=== PATIENT | female | born 1940 | race American Indian/Alaskan Native ===

== ENCOUNTER 2017-02-17 07:18 | Day surgery (SDC) | payer MEDICARE ==
[~2017-02-17 07:18] MED LIST: ANCEF/STERILE WATER 2 GM/20 ML 2 GM/20 ML SYRINGE IV NR; DILAUDID ONE; DIPRIVAN 10 MG/ML IV ONE; HEPARIN 10,000 UNITS/10 ML ONE; MARCAINE 0.5% 30 ML INFILTRATI ONE; NACL 0.9% 1000 ML 1,000 ML IV SCH; NACL 0.9% 250ML 250 ML ONE; NACL 0.9% 500 ML 0 ML ONE; PEPCID PO NR; SODIUM BICARBONATE ONE; XYLOCAINE 1%/ EPI 1:100,000 INFILTRATI ONE; XYLOCAINE MPF 2% ONE; ZOFRAN ONE
--- NOTE | 2017-02-17 07:30 | Anesthesia Consultation ---
Anesthesia Consult and Med Hx Date of service: 02/17/17 - Airway Anesthetic Teeth Evaluation: Dentures ROM Head & Neck: Adequate Mental/Hyoid Distance: Adequate Mallampati Class: Class III Intubation Access Assessment: Probably Good - Pulmonary Exam CTA: Yes - Cardiac Exam Cardiac Exam: RRR - Pre-Operative Health Status ASA Pre-Surgery Classification: ASA4 Proposed Anesthetic Plan: General - Pulmonary Hx Smoking: Yes (CIGARETTES 1 PPD X 20 YRS, QUIT IN 1995) Hx Sleep Apnea: No - Cardiovascular System Hx Hypertension: Yes - Endocrine Hx End Stage Renal Disease: Yes Hx Insulin Dependent Diabetes: Yes - Hematic Hx Anemia: Yes - Other Systems Hx Cancer: No - Additional Comments Anesthesia Medical History Comments: CHF. High cholesterol. Patient's daughter has power of transactional attorney.
--- NOTE | 2017-02-17 07:31 | Anesthesia Day of Surgery ---
Anesthesia Day of Surgery - Day of Surgery Patient Examined: Yes Patient H&P Reviewed: Yes Patient is NPO: Yes Beta Blockers: Yes
[2017-02-17] MEDS ORDERED: NACL BACTERIOSTATIC INFILTRATI ONE (07:39)
[2017-02-17] MEDS ORDERED: DILAUDID IV PRN (08:04)
[2017-02-17] MEDS ORDERED: ZOFRAN IV PRN (09:00)
[2017-02-17] MEDS ORDERED: SODIUM BICARBONATE IV ONE (09:13)
[2017-02-17] MEDS ORDERED: RIFADIN ONE (09:13)
[2017-02-17] MEDS ORDERED: NACL P/F VIAL (10 ML) 10 ML ONE (09:15)
[2017-02-17] MEDS ORDERED: DECADRON ONE (09:17)
[2017-02-17] MEDS ORDERED: RIFADIN 600 MG in NACL 0.9% 50 ML IR ONE (09:22)
[2017-02-17] MEDS ORDERED: HEPARIN 10,000 UNITS/10 ML 1,000 UNIT in NACL 0.9% 250ML 250 ML IR ONE (09:22)
[2017-02-17] MEDS ORDERED: HEPARIN 10,000 UNITS/10 ML ONE (09:23)
[2017-02-17] MEDS ORDERED: MARCAINE 0.5% INFILTRATI ONE ×2 (09:41)
[2017-02-17] MEDS ORDERED: NACL 0.9% IR ONE (09:41)
[2017-02-17] MEDS ORDERED: GELFOAM TP ONE ×2 (09:45→09:48)
[2017-02-17] MEDS ORDERED: THROMBIN (BOVINE) TP ONE (09:46)
[2017-02-17] MEDS ORDERED: THROMBIN SPRAYKIT (BOVINE) TP ONE (09:48)
--- NOTE | 2017-02-17 10:47 | Short Stay Summary ---
Short Stay Documentation - History H&P: obtained from office - Allergies and Medications Current Medications: Allergies metformin Allergy (Verified 02/08/17 15:03) Unknown Home Medications Medication Instructions Recorded Confirmed Last Taken Type ALBUTEROL NEB's [Proventil] 2.5 mg IH Q6H PRN 02/08/17 02/08/17 02/16/17 History Acetaminophen [Acetaminophen ER 650 mg PO Q6HR PRN 02/08/17 02/08/17 02/16/17 History TAB] Carvedilol [Coreg] 6.25 mg PO BID 02/08/17 02/08/17 02/17/17 05:05 History Enoxaparin [Lovenox] 30 mg SQ QDAY 02/08/17 02/08/17 02/16/17 History Ergocalciferol (Vitamin D2) 5,000 unit PO DAILY 02/08/17 02/08/17 02/16/17 History [Vitamin D2] Esomeprazole Magnesium [NexIUM] 40 mg PO QDAY 02/08/17 02/08/17 02/17/17 05:05 History Fe Fumarate/FA/Mv, Min Comb#15 1 tab PO QDAY 02/08/17 02/08/17 02/16/17 History [Hemocyte Plus] Gabapentin [Neurontin] 100 mg PO Q8HR 02/08/17 02/08/17 02/16/17 History Insulin Aspart Prot/Aspart(Nf) 0 units SQ TIDAC 02/08/17 02/08/17 02/16/17 History [Novolog Mix 70/30] Insulin Glargine [Lantus] 15 unit SUB-Q QHS 02/08/17 02/08/17 02/16/17 History Melatonin [Melatin] 3 mg PO QHS 02/08/17 02/08/17 02/16/17 History Mineral Oil/Hydrophil Petrolat 50 gm TP QPM 02/08/17 02/08/17 02/16/17 History [Aquaphor Healing Ointment] Polyethylene Glycol 3350 [Miralax 17 gm PO Q6H PRN 02/08/17 02/08/17 02/16/17 History 3350] Pravastatin Sodium [Pravastatin] 40 mg PO QDAY 02/08/17 02/08/17 02/17/17 05:05 History Sucralfate [Carafate] 1 gm PO Q6HR 02/08/17 02/08/17 02/16/17 History Ascorbic Acid [Vitamin C] 500 mg PO DAILY 02/17/17 02/17/17 02/17/17 History Aspirin [Adult Low Dose Aspirin EC] 81 mg PO DAILY 02/17/17 02/17/17 02/16/17 History HYDROcodone/APAP 5-325 [[place] 1 each PO Q4HR PRN #60 tablet 02/17/17 Unknown Rx 5/325] Vit B Comp&C/Folic Acid/Vit D3 1 each PO DAILY 02/17/17 02/17/17 02/16/17 History [Dialyvite 800 Plus D Wafer] Active Medications Famotidine (Pepcid) 20 mg PO PREOP NR Stop: 02/17/17 23:59 Last Admin: 02/17/17 08:07 Dose: 20 mg Hydromorphone HCl (Dilaudid) 0.25 mg IV Q10MIN PRN PRN Reason: Pain, Moderate (4-6) Stop: 02/17/17 16:00 Cefazolin Sodium (Ancef/Sterile Water 2 Gm/20 Ml) 2 gm in 20 mls @ 80 mls/hr IV PREOP NR PRN Reason: Protocol Stop: 02/17/17 23:59 Sodium Chloride (Nacl 0.9% 1000 Ml) 1,000 mls @ 42 mls/hr IV DIRECT RONNIE Last Admin: 02/17/17 07:45 Dose: 42 mls/hr - Brief post op/procedure progress note Date of procedure: 02/17/17 Pre-op diagnosis: ESRD Post-op diagnosis: same Procedure: LUE AVG WITH 6MM BOVINE BRACHIAL ARTERY TO AXILLARY VEIN Anesthesia: other (LMA, LOCAL) Findings: GOOD THRILL, 2+ RADIAL AT END OF CASE Surgeon: ELY GARAY Estimated blood loss: minimal Pathology: none Condition: stable - Hospital course Hospital course: BENIGN - Disposition Condition at discharge: Good Disposition: DISCHARGED TO HOME OR SELFCARE - Discharge Diagnoses (1) ESRD (end stage renal disease) on dialysis Status: Chronic Comment: HERE FOR PERMANENT ACCESS Short Stay Discharge Plan Activity: advance as tolerated Diet: regular Wound: keep clean and dry Follow up with: ELY GARAY MD [Staff Physician] - 14 Days Prescriptions: HYDROcodone/APAP 5-325 [[place] 5/325] 1 each PO Q4HR PRN #60 tablet PRN Reason: Pain
--- NOTE | 2017-02-17 10:49 | Operative Report ---
Operative Report Operative Report: Date of procedure: 02/17/2017 Pre-operative diagnosis: End-stage renal failure Post-operative diagnosis: Same Procedure name(s): Left upper extremity brachial artery to axillary vein bridge graft using 6 mm bovine graft Surgeon: Chuy Jay MD Director Of Surgery: None Anesthesia: Local MAC EBL: Less than 50 mL Operative indication: Patient is a 76-year-old woman with end-stage renal failure and need for long-term hemodialysis access. Findings: Excellent thrill in the arteriovenous graft at the end of the procedure. And 2+ left radial pulse. Procedure: The patient was placed on the table in the supine position. The arm was prepped with ChloraPrep solution and draped in the usual sterile fashion. I examined the basilic vein in the left upper arm with ultrasound. I did not see a usable vein in the upper portion of the arm. Under local anesthesia, an incision was made just above the elbow. Dissection was carried out to identify the brachial artery. The brachial artery was surrounded with Vesseloops proximally and distally. The brachial artery was approximately 5 mm in diameter. A second incision was made in the axilla and dissection was carried out to identify the axillary vein. This vein was also at least 7 mm in diameter. Vessel loops were placed proximally and distally. I should note that the wounds were infiltrated with half percent Marcaine and epinephrine prior to incision. The bovine graft was prepped according to the IFU. A tunnel was created in the upper arm between the 2 incisions using a Sophia-Wick tunneler. The graft was anastomosed to the axillary vein in an end to side fashion using running 6-0 Prolene. The arterial anastomosis was completed in an end-to-side fashion. The arteriotomy was approximate 5 mm in length. A Alisa catheter was used to break the spasm in the brachial artery proximally and distally to the anastomosis. The anastomosis is completed and flow was started into the arteriovenous graft with the development of an immediate and excellent thrill along the body of the graft. The left radial pulse remained palpable. Meticulous hemostasis was obtained. Closure was done with 3-0 Vicryl on the subcutaneous tissues tissue and 4-0 PDS on the subcuticular tissue. Sterile dressings were applied. The patient tolerated the procedure well. There was an easily palpable left radial pulse at the end of the procedure. There was a good thrill in the graft at the end of the procedure. Sponge, needle, and instrument counts were reported as correct. The patient was taken from the operating room to the recovery room in stable condition.
[2017-02-17] MEDS ORDERED: PROVENTIL IH ONE (10:53)
[2017-02-17] MEDS ORDERED: PROVENTIL IH STA (10:59)
--- NOTE | 2017-02-17 12:30 | Post Anesthesia Evaluation ---
- Post Anesthesia Evaluation Patient Participated: Yes Airway Patent: Yes Stable Respiratory Function: Yes Nausea/Vomiting: No Temp > 96.8F: Yes Pain Manageable: Yes Adequeate Hydration: Yes Anesthesia Complications: No Block Receding Appropriately: Not Applicable Patient on Ventilator: No
[2017-02-17 12:42] VITALS: BP 146/57
== END 2017-02-17 12:10 | disposition home or self-care (01) ==
LOC: OR 07:18
PROVIDERS: ATTEND Surgery Vascular Surgery
DX: E11.22 Type 2 diabetes mellitus with diabetic chronic kidney disease (principal); I13.2 Hypertensive heart and chronic kidney disease with heart failure and with stage 5 chronic kidney disease, or end stage renal disease; N18.6 End stage renal disease; I50.9 Heart failure, unspecified; I15.9 Secondary hypertension, unspecified; E78.5 Hyperlipidemia, unspecified; D64.9 Anemia, unspecified; Z99.2 Dependence on renal dialysis; Z98.890 Other specified postprocedural states; Z90.49 Acquired absence of other specified parts of digestive tract; Z87.891 Personal history of nicotine dependence; Z79.84 Long term (current) use of oral hypoglycemic drugs; Z79.899 Other long term (current) drug therapy; Z83.3 Family history of diabetes mellitus; Z82.49 Family history of ischemic heart disease and other diseases of the circulatory system
CPT/HCPCS: 36415; 36830; 82962; 84132; A4649; C1757; C1768; J0690; J1100; J1170; J1644; J2405; J2704; J3490; J7030; J7050; J7040

== ENCOUNTER 2017-04-28 17:32 | Inpatient (IN) | payer MEDICARE ==
[2017-04-28] MEDS ORDERED: NACL 0.9% 1000 ML 1,000 ML IV ONE (18:23)
[2017-04-28] MEDS ORDERED: NACL 0.9% 500 ML 500 ML IV ONE ×2 (18:36→22:07)
[2017-04-28 18:46] LABS: Basophils % (Auto) 0.9 % (0.0-1.8); Eosinophils % (Auto) 3.8 % (0.0-4.3); Hematocrit 29.2 % (30.3-42.9); Hemoglobin 9.5 gm/dl (10.1-14.3); Mean Corpuscular HGB Conc 33 % (30-34); Mean Corpuscular Hemoglobin 30 pg (28-32); Mean Corpuscular Volume 93 fl (79-97); Platelet Count 138 K/mm3 (140-440); Red Blood Count 3.15 M/mm3 (3.65-5.03); Red Cell Distribution Width 18.3 % (13.2-15.2); White Blood Count 5.7 K/mm3 (4.5-11.0)
[2017-04-28 18:57] LABS: INR 1.31 (0.87-1.13)
[2017-04-28 18:58] LABS: Partial Thromboplastin Time 36.5 Sec. (24.2-36.6)
[2017-04-28 19:06] LABS: Albumin 2.3 g/dL (3.9-5); Albumin/Globulin Ratio 0.8 %; Bilirubin,Total 0.9 mg/dL (0.1-1.2); Calcium 8.1 mg/dL (8.4-10.2); Chloride 96.2 mmol/L (98-107); Potassium 3.5 mmol/L (3.6-5.0); Total Protein 5.2 g/dL (6.3-8.2)
--- NOTE | 2017-04-28 19:10 | Emergency Department Report ---
HPI - General Chief Complaint: GI Bleed Time Seen by Provider: 04/28/17 18:22 - HPI HPI: Patient sent to ED from group home with several large bright red bowel movement, low blood pressure, symptoms started after dialysis. The patient's medical issues include dialysis, end-stage renal disease, high blood pressure, diabetes, hyperlipidemia. Since the bleeding started the patient have been mildly confused. ED Past Medical Hx - Past Medical History Hx Hypertension: Yes Hx Congestive Heart Failure: Yes Hx Diabetes: Yes Hx Renal Disease: Yes (dialysis) Hx HIV: No - Surgical History Hx Appendectomy: Yes Additional Surgical History: av graft left arm and vas cath right chest - Family History Family history: hypertension - Social History Smoking Status: Never Smoker Substance Use Type: None - Medications Home Medications: Home Medications Medication Instructions Recorded Confirmed Last Taken Type ALBUTEROL NEB's [Proventil] 2.5 mg IH Q6H PRN 02/08/17 04/28/17 02/16/17 History Acetaminophen [Acetaminophen ER 650 mg PO Q6HR PRN 02/08/17 04/28/17 02/16/17 History TAB] Carvedilol [Coreg] 6.25 mg PO BID 02/08/17 04/28/17 02/17/17 05:05 History Enoxaparin [Lovenox] 30 mg SQ QDAY 02/08/17 04/28/17 02/16/17 History Ergocalciferol (Vitamin D2) 5,000 unit PO DAILY 02/08/17 04/28/17 02/16/17 History [Vitamin D2] Esomeprazole Magnesium [NexIUM] 40 mg PO QDAY 02/08/17 04/28/17 02/17/17 05:05 History Gabapentin [Neurontin] 100 mg PO Q8HR 02/08/17 04/28/17 02/16/17 History Insulin Aspart Prot/Aspart(Nf) 0 units SQ TIDAC 02/08/17 04/28/17 02/16/17 History [Novolog Mix 70/30] Insulin Glargine [Lantus] 15 unit SUB-Q QHS 02/08/17 04/28/17 02/16/17 History Melatonin [Melatin] 3 mg PO QHS 02/08/17 04/28/17 02/16/17 History Polyethylene Glycol 3350 [Miralax 17 gm PO Q6H PRN 02/08/17 04/28/17 02/16/17 History 3350] Pravastatin Sodium [Pravastatin] 40 mg PO QDAY 02/08/17 04/28/17 02/17/17 05:05 History Ascorbic Acid [Vitamin C] 500 mg PO DAILY 02/17/17 04/28/17 02/17/17 History Aspirin [Adult Low Dose Aspirin EC] 81 mg PO DAILY 02/17/17 04/28/17 02/16/17 History HYDROcodone/APAP 5-325 [[place] 1 each PO Q4HR PRN #60 tablet 02/17/17 04/28/17 Unknown Rx 5/325] Cyproheptadine HCl 4 mg PO TID 04/28/17 04/28/17 Unknown History Menthol/Zinc Oxide [Calmoseptine 71 gm TP Q4H 04/28/17 04/28/17 Unknown History Ointment] Nystatin Cream [Mycostatin Cream] 1 applic TP BID 04/28/17 04/28/17 Unknown History Polyethylene Glycol 3350 [Miralax 17 gm PO Q6H PRN 04/28/17 04/28/17 Unknown History 3350] Sertraline [Zoloft] 25 mg PO QDAY 04/28/17 04/28/17 Unknown History Vit B Cplx #11/FA/C/Biot/Zn Ox 1 each PO QDAY 04/28/17 04/28/17 Unknown History [Dialyvite with Zinc Tablet] ED Review of Systems ROS: Stated complaint: GI BLEED Other details as noted in HPI Comment: All other systems reviewed and negative Gastrointestinal: hematochezia Physical Exam - Physical Exam Vital Signs: Vital Signs 04/28/17 04/28/17 18:20 18:50 Temperature 98 F Pulse Rate 101 H 86 Respiratory 20 18 Rate Blood Pressure 99/49 Blood Pressure 93/45 [Right] O2 Sat by Pulse 95 Oximetry Physical Exam: Gen. alert and oriented 3 in no distress Head atraumatic normocephalic Eyes PERR LA EOMI Chest regular rate and rhythm normal S1-S2 lungs clear bilaterally Abdomen soft nondistended, bright red blood per rectum. Back no point tenderness paravertebral tenderness Neuro no focal deficit. Psych normal mood. ED Course Vital Signs 04/28/17 04/28/17 18:20 18:50 Temperature 98 F Pulse Rate 101 H 86 Respiratory 20 18 Rate Blood Pressure 99/49 Blood Pressure 93/45 [Right] O2 Sat by Pulse 95 Oximetry - Reevaluation(s) Reevaluation #1: 04/28/17 23:03 BB it dropped to 70s over 30s, rectal bleeding increased, decision made to give patient O- blood 2 unit. Also fresh frozen plasma times one unit. Patient premedicated with Solu-Medrol 125 mg, Benadryl 25 mg IV prior to transfusion. GI consulted spoke with Dr. Jadiel Canchola's recommended getting the scan and get the patient prepped for colonoscopy in the morning. Also I spoke with Dr. Howell into the ED and evaluated patient and recommended against surgical intervention at this time due to unstable blood pressure. I attempted to put a central line in the right groin area, Reevaluation #2: 04/29/17 00:[address] a left femoral vein triple-lumen catheter, start patient 3 times, entered the femoral vein, guidewire would not thread, likely to scar tissue. area cleaned, dressing placed, patient in stable condition. ED Medical Decision Making - Lab Data Result diagrams: 04/28/17 22:47 04/28/17 18:20 Critical Care Time: Yes Critical care time in (mins) excluding proc time.: 45 Critical care attestation.: If time is entered above; I have spent that time in minutes in the direct care of this critically ill patient, excluding procedure time. Critical Care Time: 45 mns ED Disposition Clinical Impression: Lower GI bleed Disposition: OP ADMIT IP TO THIS HOSP Is pt being admited?: Yes Does the pt Need Aspirin: No Condition: Critical
--- NOTE | 2017-04-28 19:13 | Admit Criteria Form ---
Admission Criteria Documentation: GASTROINTESTINAL BLEEDING, LOWER Clinical Indications for Admission to Inpatient Care ( Place 'X' for any and all applicable criteria): Admission is indicated for ANY ONE of the following(1)(2)(3)(4)(5): [ ]I. Active gross bleeding per rectum [X ]II. Inpatient admission required rather than observation care (Also use Gastrointestinal Bleeding, Lower: Observation Care as appropriate) because of ANY ONE of the following: [ ]a) Hemodynamic instability that is severe or persistent [ ]b) Anemia requiring inpatient admission as indicated by ALL of the following: [ ]1) Presence of significant clinical finding indicated by ANY ONE of the following: [ ]A. Tachycardia for age [ ]B. Orthostatic vital sign changes [ ]C. Cognitive impairment [ ]D. Heart failure [ ]E. Chest pain [ ]F. Exertional dyspnea [ ]G. Other findings suggesting inadequate perfusion (eg, peripheral or myocardial ischemia, end organ dysfunction) [ ]2) Initial (eg, emergency department, observation care) treatment with transfusion or volume replacement is judged inappropriate (due to severity of the finding) or has been ineffective [ ]c) Severe pain requiring acute inpatient management [ ]d) Absent bowel sounds with complete ileus [ ]e) Signs of intestinal obstruction or peritonitis [A] [ ]f) High-risk low platelet count [ ]g) Severe electrolyte abnormalities requiring inpatient care [ ]h) Acute renal failure [ ]i) High fever or infection requiring inpatient admission as indicated by ANY ONE of the following(8)(9): [ ]1) Appropriate outpatient or observation care antimicrobial treatment unavailable, not effective, or not feasible Documented bacteremia [ ]2) Documented bacteremia [ ]3) Temperature greater than 104.9 degrees F ( 40.5 degrees C) (oral) [ ]4) Temperature greater than 103.1 degrees F ( 39.5 degrees C) (oral) or less than 96.8 degrees F (36 degrees C) (rectal) that does not respond to all emergency treatment measures [ ]j) IV fluid to replace significant ongoing losses ( greater than 3 L/m2 per day) [ ]k) Immediate inpatient surgery needed [ ]l) Parenteral nutrition regimen that must be implemented on inpatient basis [X ]m) Other condition, treatment or monitoring requiring inpatient admission [ ]III. Unstable comorbid illness (renal, hepatic, pulmonary, hematologic, neurologic, or cardiac) [ ]IV. Failure to control bleeding after colonoscopy [ ]V. Coagulopathy [ ]. Suspected or known ischemic colitis(6) [ ]VII. Previous aortic graft placement or known aortic aneurysm Extended stay beyond goal length of stay may be needed for(3)(4)(28): [ ]a) Emergency surgery [ ]b) Coagulation abnormalities(26) [ ]c) Recurrent or persistent bleeding, continued vital sign instability(27)( 28) [ ]d) Active comorbidities (eg, renal insufficiency, heart failure, pre- existing liver disease) The original [employer] content created by [employer] has been revised. The portions of the content which have been revised are identified through the use of italic text or in bold, and [facility] has neither reviewed nor approved the modified material. All other unmodified content is copyright [facility]. Please see references footnoted in the original [employer] edition 2016 Admission Criteria Met: Yes
[2017-04-28 19:55] LABS: Hemoglobin 8.4 gm/dl (10.1-14.3)
[2017-04-28] MEDS ORDERED: BENADRYL IV ONE (20:38)
[2017-04-28] MEDS: LEVOPHED DRIP 4 MG/NS 250 ML 4 MG/250 ML BAG IV SCH ×2 (20:45→22:12)
--- NOTE | 2017-04-28 22:18 | History and Physical Report ---
History of Present Illness Date of examination: 04/28/17 History of present illness: 76-year-old woman with a history of diabetes, end-stage renal disease, CHF, stable emergency room because of blood per rectum and clots noted in her diaper. Daughter at bedside state that the patient had an episode of bleeding per rectum a month ago. Patient has been hypotensive and was started on the Levophed drip. Status post steroids and Benadryl in the emergency room secondary to antibodies to blood Review of systems Constitutional: no fever, no chills, no weight loss Ears, eyes, nose, mouth and throat: no nasal congestion, no nasal discharge, no sinus pressure, no vision change, no red eye. Neck: No neck pain or rigidity. Cardiovascular: chest pain, no orthopnea, no palpitations, no leg swelling Respiratory: No shortness of breath, no cough, no congestion, no wheezing Gastrointestinal: no abdominal pain, nausea, no vomiting Genitourinary : no dysuria, frequency , no hematuria Musculoskeletal: no joint swelling or muscle ache Integumentary: no rash, no pruritis Neurological: no parathesias, no numbness, no focal weakness Endocrine: no cold or heat intolerance, no polyuria or polydipsia Hematologic/Lymphatic: no easy bruising, no easy bleeding, no gland swelling Allergic/Immunologic: no urticaria, no angioedema. PAST MEDICAL HISTORY:diabetes, end-stage renal disease, CHF PAST SURGICAL HISTORY: Appendectomy, AV fistula, elbow surgery, carpal tunnel release, hysterectomy, , knee replacement FAMILY HISTORY: Hypertension, diabetes SOCIAL HISTORY: Denies alcohol, tobacco, drug Medications and Allergies Allergies Allergy/AdvReac Type Severity Reaction Status Date / Time metformin Allergy Unknown Verified 02/08/17 15:03 Home Medications Medication Instructions Recorded Confirmed Last Taken Type ALBUTEROL NEB's [Proventil] 2.5 mg IH Q6H PRN 02/08/17 04/28/17 02/16/17 History Acetaminophen [Acetaminophen ER 650 mg PO Q6HR PRN 02/08/17 04/28/17 02/16/17 History TAB] Carvedilol [Coreg] 6.25 mg PO BID 02/08/17 04/28/17 02/17/17 05:05 History Enoxaparin [Lovenox] 30 mg SQ QDAY 02/08/17 04/28/1717 History Ergocalciferol (Vitamin D2) 5,000 unit PO DAILY 02/08/17 04/28/17 02/16/17 History [Vitamin D2] Esomeprazole Magnesium [NexIUM] 40 mg PO QDAY 02/08/17 04/28/17 02/17/17 05:05 History Gabapentin [Neurontin] 100 mg PO Q8HR 02/08/17 04/28/17 02/16/17 History Insulin Aspart Prot/Aspart(Nf) 0 units SQ TIDAC 02/08/17 04/28/17 02/16/17 History [Novolog Mix 70/30] Insulin Glargine [Lantus] 15 unit SUB-Q QHS 02/08/17 04/28/17 02/16/17 History Melatonin [Melatin] 3 mg PO QHS 02/08/17 04/28/17 02/16/17 History Polyethylene Glycol 3350 [Miralax 17 gm PO Q6H PRN 02/08/17 04/28/17 02/16/17 History 3350] Pravastatin Sodium [Pravastatin] 40 mg PO QDAY 02/08/17 04/28/17 02/17/17 05:05 History Ascorbic Acid [Vitamin C] 500 mg PO DAILY 02/17/17 04/28/17 02/17/17 History Aspirin [Adult Low Dose Aspirin EC] 81 mg PO DAILY 02/17/17 04/28/17 02/16/17 History HYDROcodone/APAP 5-325 [[place] 1 each PO Q4HR PRN #60 tablet 02/17/17 04/28/17 Unknown Rx 5/325] Cyproheptadine HCl 4 mg PO TID 04/28/17 04/28/17 Unknown History Menthol/Zinc Oxide [Calmoseptine 71 gm TP Q4H 04/28/17 04/28/17 Unknown History Ointment] Nystatin Cream [Mycostatin Cream] 1 applic TP BID 04/28/17 04/28/17 Unknown History Polyethylene Glycol 3350 [Miralax 17 gm PO Q6H PRN 04/28/17 04/28/17 Unknown History 3350] Sertraline [Zoloft] 25 mg PO QDAY 04/28/17 04/28/17 Unknown History Vit B Cplx #11/FA/C/Biot/Zn Ox 1 each PO QDAY 04/28/17 04/28/17 Unknown History [Dialyvite with Zinc Tablet] Active Meds: Active Medications Norepinephrine (Levophed Drip 4 Mg/Ns 250 Ml) 4 mg in 250 mls @ 7.5 mls/hr IV TITR RONNIE; 2 MCG/MIN PRN Reason: Protocol Last Admin: 04/28/17 22:12 Dose: 2.5 mcg/min, 9.375 mls/hr Ondansetron HCl (Zofran) 4 mg IV Q4H PRN PRN Reason: N/V unrelieved by Reglan Exam - Physical Exam Narrative exam: Gen. appearance: Patient lying in bed, no apparent distress HEENT: Normocephalic, atraumatic, pupils equally round and reactive to light, extraocular movement intact, and no sclericterus,. No JVD or thyromegaly or nodule,neck supple, no carotid bruit ,mucous membranes moist, no exudate or erythema Heart: S1, S2, regular rate and rhythm Lungs: Clear to auscultation bilaterally, breathing comfortable Abdomen: Positive bowel sounds, nontender, nondistended, no organomegaly Extremity: No edema, cyanosis, clubbing Skin: No rash, nodules, warm, dry Neuro: Oriented 3, cranial nerves II-12 intact, speech is fluent, motor and sensory intact - Constitutional Vitals: Temp Pulse Resp BP Pulse Ox 97.3 F L 95 H 15 106/41 95 04/28/17 21:21 04/28/17 21:21 04/28/17 21:21 04/28/17 21:21 04/28/17 21:21 Results - Labs CBC & Chem 7: 04/29/17 19:32 04/29/17 03:27 Labs: Abnormal lab results 04/28/17 04/28/17 04/28/17 Range/Units 18:20 18:20 18:20 RBC 3.15 L (3.65-5.03) M/mm3 Hgb 9.5 L (10.1-14.3) gm/dl Hct 29.2 L (30.3-42.9) % RDW 18.3 H (13.2-15.2) % Plt Count 138 L (140-440) K/mm3 PT (12.2-14.9) Sec. INR (0.87-1.13) Potassium 3.5 L (3.6-5.0) mmol/L Chloride 96.2 L (98-107) mmol/L Carbon Dioxide 31 H (22-30) mmol/L Creatinine 2.0 H (0.7-1.2) mg/dL Glucose 207 H (65-100) mg/dL Lactic Acid (0.7-2.0) mmol/L Calcium 8.1 L (8.4-10.2) mg/dL Total Protein 5.2 L (6.3-8.2) g/dL Albumin 2.3 L (3.9-5) g/dL Crossmatch See Detail 04/28/17 04/28/17 04/28/17 Range/Units 18:20 19:41 20:12 RBC (3.65-5.03) M/mm3 Hgb 8.4 L (10.1-14.3) gm/dl Hct 26.0 L (30.3-42.9) % RDW (13.2-15.2) % Plt Count (140-440) K/mm3 PT 17.0 H (12.2-14.9) Sec. INR 1.31 H (0.87-1.13) Potassium (3.6-5.0) mmol/L Chloride (98-107) mmol/L Carbon Dioxide (22-30) mmol/L Creatinine (0.7-1.2) mg/dL Glucose (65-100) mg/dL Lactic Acid 4.00 H* (0.7-2.0) mmol/L Calcium (8.4-10.2) mg/dL Total Protein (6.3-8.2) g/dL Albumin (3.9-5) g/dL Crossmatch - Imaging and Cardiology EKG: image reviewed Chest x-ray: report reviewed Abdominal x-ray: report reviewed Assessment and Plan Bleeding scan is pending Assessment Lower GI bleed, rule out diverticular versus other source Hypotension secondary to acute blood loss Posthemorrhagic anemia End-stage renal disease needing dialysis Diabetes type 2 CHF, stable Plan Admit to medicine Transfuse packed red blood cells, continue Levophed drip Check serial hemoglobin, consult GI, critical care, surgery, renal Check fingersticks and initiate insulin sliding scale Check blood culture, urinalysis, give 1 dose of Zosyn DVT prophylaxis with SCD
--- NOTE | 2017-04-28 23:16 | XRay Report ---
FINAL REPORT EXAM: XR CHEST 1V AP HISTORY: cp TECHNIQUE: AP portable view of the chest. PRIORS: None. FINDINGS: There is a right-sided Vas-Cath in place with the tip in the superior vena cava. The cardiomediastinal silhouette appears normal. There is a right basilar opacity consistent with pleural effusion. The left lung is clear. The bones and soft tissues are unremarkable. IMPRESSION: Right pleural effusion
--- NOTE | 2017-04-28 23:20 | XRay Report ---
FINAL REPORT EXAM: XR ABDOMEN 1V AP HISTORY: blood in stools TECHNIQUE: Supine AP view of the abdomen. PRIORS: None. FINDINGS: The stomach is moderately air distended. The cecum is mildly gas distended. The proximal left colon is mildly gas distended. Otherwise, the bowel gas pattern appears normal. The bones are unremarkable. IMPRESSION: No evidence of bowel obstruction. Nonspecific mild gas distension of the cecum and proximal left colon.
[2017-04-28] MEDS ORDERED: FLUSH HEPARIN IV ONE (23:24)
[2017-04-28 23:32] LABS: Hematocrit 35.7 % (30.3-42.9); Hemoglobin 11.6 gm/dl (10.1-14.3)
--- NOTE | 2017-04-29 01:42 | Nuclear Medicine Report ---
FINAL REPORT PROCEDURE: NM GI BLEEDING SCAN TECHNIQUE: Arterial flow and static planar gamma camera images of the abdomen and pelvis were obtained after the IV administration of 20 mCi Tc-99m tagged red blood cells. Injection site: RIGHT antecubital fossa. CPT 73801 HISTORY: bleeding COMPARISON: No prior studies are available for comparison. FINDINGS: Small and Large bowel activity: Normal. Organs and soft tissues: Normal. IMPRESSION: Normal evaluation with no evidence of active GI bleeding during the study.
[2017-04-29] MEDS: ZOFRAN IV PRN ×2 (03:32→22:15)
[2017-04-29 03:45] LABS: Hematocrit 35.2 % (30.3-42.9); Hemoglobin 11.4 gm/dl (10.1-14.3); Mean Corpuscular HGB Conc 32 % (30-34); Mean Corpuscular Hemoglobin 29 pg (28-32); Mean Corpuscular Volume 90 fl (79-97); Platelet Count 147 K/mm3 (140-440); Red Blood Count 3.91 M/mm3 (3.65-5.03); Red Cell Distribution Width 16.7 % (13.2-15.2); White Blood Count 14.3 K/mm3 (4.5-11.0)
[2017-04-29 04:05] LABS: Calcium 8.2 mg/dL (8.4-10.2); Chloride 97.7 mmol/L (98-107)
[2017-04-29 04:09] LABS: Potassium 4.8 mmol/L (3.6-5.0)
[2017-04-29 05:24] LABS: Anisocytosis 1+; Basophils % (Manual) 0 % (0.0-1.8); Blastocytes % (Manual) 0 %; Diff Status Complete; Eosinophils % (Manual) 0 % (0.0-4.3)
--- NOTE | 2017-04-29 05:31 | Consultation ---
HISTORY OF PRESENT ILLNESS: This patient is a 76-year-old black female (known case of renal failure). She is on hemodialysis. She is a known case of congestive heart failure as well and diabetes. She came to the hospital from the retirement. Apparently, she had some bleeding from her rectum this afternoon. The patient had hemodialysis today as per her family. Her normal blood pressure is 140 to 150 and when she came in, her blood pressure was between 80 and 90, and Dr. Rodriguez had seen her today in the ER and the patient was started on the blood. She had 2 units of packed cells so far. Her blood pressure went up to range of 102 to 105. He noted that her platelets are okay, it is 132. The hemoglobin is 8. Her blood pressure is on the lower side, however. I was asked to evaluate her because of the bleed that she had. I could see the blood from her rectum, mainly dark red blood mixed with stool. There is no vaginal bleeding. The patient gives history of hysterectomy in the past. ALLERGIES: Allergic reactions were denied. PHYSICAL EXAMINATION: GENERAL: Showed a thin, slim, elderly lady. She is sociable. She is able to respond. HEAD AND NECK: Negative. BREASTS: Symmetric and these were atrophic. CHEST: Essentially clear to me. HEART: Sounds normal. ABDOMEN: Protuberant, soft, benign. Some tenderness in the mid lower abdomen, more to the left side. EXTREMITIES: Minimal edema. IMPRESSION: 1. Gastrointestinal bleeding ? Lower. 2. Diabetes mellitus by history. 3. On hemodialysis. 4. On Lovenox. 5. S/P saravanan I had a lengthy talk with the daughter with the family. She is a cyber defense incident responder. It seems that she knows what was going on. I believe this needs to be addressed by a engineer specialist to see her, fitting supervisor to see her, a law firm partner to see her and of course me. We are going to pursue that further. She is going to the Intensive Care Unit to keep an eye on her and we need to be slow with her IV fluids and giving her blood. She would need platelets, calcium, maybe potassium, vitamin K and platelets. We are going to leave that for the scalping machine operator and the fitting supervisor as well as the hospitalist. JOB# [id number] AZIZA/MECHELLE COOK
[2017-04-29] MEDS ORDERED: ZOSYN/NS 2.25 GM/50ML 2.25 GM/50 ML BAG IV ONE (05:56)
--- NOTE | 2017-04-29 09:26 | Consultation ---
History of Present Illness - Reason for Consult Consult date: 04/29/17 end stage renal disease - History of Present Illness patient with h/o ESRD on HD every TTS, last treatment was yesterday, she was sent from [facility]F for blood in stool, in the ED she was anemic with low BP and she transferred to ICU. when seen she was awake and alert but weak, daughter at the bedside. renal consult was requested for ESRD and HD management Past History Past Medical History: ESRD, heart failure Medications and Allergies Allergies Allergy/AdvReac Type Severity Reaction Status Date / Time metformin Allergy Unknown Verified 02/08/17 15:03 Home Medications Medication Instructions Recorded Confirmed Last Taken Type ALBUTEROL NEB's [Proventil] 2.5 mg IH Q6H PRN 02/08/17 04/28/17 02/16/17 History Acetaminophen [Acetaminophen ER 650 mg PO Q6HR PRN 02/08/17 04/28/17 02/16/17 History TAB] Carvedilol [Coreg] 6.25 mg PO BID 02/08/17 04/28/17 02/17/17 05:05 History Enoxaparin [Lovenox] 30 mg SQ QDAY 02/08/17 04/28/17 02/16/17 History Ergocalciferol (Vitamin D2) 5,000 unit PO DAILY 02/08/17 04/28/17 02/16/17 History [Vitamin D2] Esomeprazole Magnesium [NexIUM] 40 mg PO QDAY 02/08/17 04/28/17 02/17/17 05:05 History Gabapentin [Neurontin] 100 mg PO Q8HR 02/08/17 04/28/17 02/16/17 History Insulin Aspart Prot/Aspart(Nf) 0 units SQ TIDAC 02/08/17 04/28/17 02/16/17 History [Novolog Mix 70/30] Insulin Glargine [Lantus] 15 unit SUB-Q QHS 02/08/17 04/28/17 02/16/17 History Melatonin [Melatin] 3 mg PO QHS 02/08/17 04/28/17 02/16/17 History Polyethylene Glycol 3350 [Miralax 17 gm PO Q6H PRN 02/08/17 04/28/17 02/16/17 History 3350] Pravastatin Sodium [Pravastatin] 40 mg PO QDAY 02/08/17 04/28/17 02/17/17 05:05 History Ascorbic Acid [Vitamin C] 500 mg PO DAILY 02/17/17 04/28/17 02/17/17 History Aspirin [Adult Low Dose Aspirin EC] 81 mg PO DAILY 02/17/17 04/28/17 02/16/17 History HYDROcodone/APAP 5-325 [[place] 1 each PO Q4HR PRN #60 tablet 02/17/17 04/28/17 Unknown Rx 5/325] Cyproheptadine HCl 4 mg PO TID 04/28/17 04/28/17 Unknown History Menthol/Zinc Oxide [Calmoseptine 71 gm TP Q4H 04/28/17 04/28/17 Unknown History Ointment] Nystatin Cream [Mycostatin Cream] 1 applic TP BID 04/28/17 04/28/17 Unknown History Polyethylene Glycol 3350 [Miralax 17 gm PO Q6H PRN 04/28/17 04/28/17 Unknown History 3350] Sertraline [Zoloft] 25 mg PO QDAY 04/28/17 04/28/17 Unknown History Vit B Cplx #11/FA/C/Biot/Zn Ox 1 each PO QDAY 04/28/17 04/28/17 Unknown History [Dialyvite with Zinc Tablet] Active Meds: Active Medications Norepinephrine (Levophed Drip 4 Mg/Ns 250 Ml) 4 mg in 250 mls @ 7.5 mls/hr IV TITR RONNIE; 2 MCG/MIN PRN Reason: Protocol Last Titration: 04/29/17 00:39 Dose: 6 mcg/min, 22.5 mls/hr Ondansetron HCl (Zofran) 4 mg IV Q4H PRN PRN Reason: N/V unrelieved by Mark Last Admin: 04/29/17 03:32 Dose: 4 mg Review of Systems All systems: negative (weakness, blood in stool) Exam - Vital Signs Vital signs: Vital Signs Temp Pulse Resp BP 98 F 101 H 20 99/49 04/28/17 18:20 04/28/17 18:20 04/28/17 18:20 04/28/17 18:20 - General Appearance General appearance: well-developed, well-nourished EENT: ATNC, PERRL, mucous membranes moist Neck: Present: neck supple Respiratory: Clear to Ascultation Heart: regular, tachycardia, S1S2 Gastrointestinal: Present: normoactive bowel sounds. Absent: tenderness, distended Integumentary: no rash, warm and dry Neurologic: no focal deficit, no asterixis, alert and oriented x3 Musculoskeletal: Present: other (no edema in BLE, L AVF with + thrill and bruit) Psychiatric: mood/affect appropriate, cooperative Results - Lab Results 04/29/17 03:27 04/29/17 03:27 Most recent lab results Calcium 8.2 mg/dL (8.4-10.2) L 04/29/17 03:27 Assessment and Plan - Patient Problems (1) Lower GI bleed Current Visit: Yes Status: Acute Plan to address problem: negative CT and and nuclear study s/p PRBC transfusion surgery on board (2) Hypotension Current Visit: Yes Status: Acute Qualifiers: Hypotension type: H Trimester: T Plan to address problem: due to volume depletion titrating down levo can bolus with NS as needed (3) ESRD (end stage renal disease) on dialysis Current Visit: No Status: Chronic Plan to address problem: current access L AVF with thrill and bruit no indication for HD today will assess dialysis needs daily renally dose meds strict I&O daily weight renal diet (4) Anemia in chronic renal disease Current Visit: Yes Status: Acute Qualifiers: Chronic kidney disease stage: C Plan to address problem: s/p PRBC transfusion Epogen with HD
--- NOTE | 2017-04-29 09:39 | Gastroenterology Consultation ---
<ANNITA VAZQUEZ - Last Filed: 04/29/17 09:53> History of Present Illness - Reason for Consult Consult date: 04/29/17 GI bleed Requesting physician: BRENNAN DARNELL - History of Present Illness Patient is a 76 y/o female detention resident, who was brought to the ER yesterday for rectal bleeding with clots in her diaper. She was noted to also be hypotensive and placed on a levophed gtt. HGB was noted to be 8.4 and she received 2 units of PRBCs. She also underwent a GI bleeding scan that revealed no evidence of active GI bleeding. She was receiving daily ASA and lovenox at the detention. PMH significant for DM, ESRD on HD, and CHF. This morning, pt was resting in bed, no acute distress. Alert and oriented to person only. History was given by her daughter that was at bedside. The daughter reports the rectal bleeding began yesterday with bright red blood. No hematemesis or melena noted. Reports occasional nausea and gradual wt loss (unknown amount) due to decrease in appetite and poor PO intake. No hx of PUD, liver disease, or Fhx of colon CA. No previous EGD or colonoscopy per her knowledge. Our group was consulted on the pt in 12/10 at [facility] for odynophagia, she was placed on a daily PPI, but no EGD performed. Pt denies CP, SOB, dizziness, vomiting, abd pain, diarrhea, or constipation. Per nursing pt has not had any active signs of bleeding since being in ICU. Past History Past Medical History: diabetes, ESRD (on HD), heart failure Past Surgical History: appendectomy, , hysterectomy, total knee replacement, Other (elbow, AV fistula) Social history: full code, other (detention resident). denies: smoking, alcohol abuse Family history: diabetes, hypertension Medications and Allergies Allergies Allergy/AdvReac Type Severity Reaction Status Date / Time metformin Allergy Unknown Verified 02/08/17 15:03 Home Medications Medication Instructions Recorded Confirmed Last Taken Type ALBUTEROL NEB's [Proventil] 2.5 mg IH Q6H PRN 02/08/17 04/28/17 02/16/17 History Acetaminophen [Acetaminophen ER 650 mg PO Q6HR PRN 02/08/17 04/28/17 02/16/17 History TAB] Carvedilol [Coreg] 6.25 mg PO BID 02/08/17 04/28/17 02/17/17 05:05 History Enoxaparin [Lovenox] 30 mg SQ QDAY 02/08/17 04/28/17 02/16/17 History Ergocalciferol (Vitamin D2) 5,000 unit PO DAILY 02/08/17 04/28/17 02/16/17 History [Vitamin D2] Esomeprazole Magnesium [NexIUM] 40 mg PO QDAY 02/08/17 04/28/17 02/17/17 05:05 History Gabapentin [Neurontin] 100 mg PO Q8HR 02/08/17 04/28/17 02/16/17 History Insulin Aspart Prot/Aspart(Nf) 0 units SQ TIDAC 02/08/17 04/28/17 02/16/17 History [Novolog Mix 70/30] Insulin Glargine [Lantus] 15 unit SUB-Q QHS 02/08/17 04/28/17 02/16/17 History Melatonin [Melatin] 3 mg PO QHS 02/08/17 04/28/17 02/16/17 History Polyethylene Glycol 3350 [Miralax 17 gm PO Q6H PRN 02/08/17 04/28/17 02/16/17 History 3350] Pravastatin Sodium [Pravastatin] 40 mg PO QDAY 02/08/17 04/28/17 02/17/17 05:05 History Ascorbic Acid [Vitamin C] 500 mg PO DAILY 02/17/17 04/28/17 02/17/17 History Aspirin [Adult Low Dose Aspirin EC] 81 mg PO DAILY 02/17/17 04/28/17 02/16/17 History HYDROcodone/APAP 5-325 [[place] 1 each PO Q4HR PRN #60 tablet 02/17/17 04/28/17 Unknown Rx 5/325] Cyproheptadine HCl 4 mg PO TID 04/28/17 04/28/17 Unknown History Menthol/Zinc Oxide [Calmoseptine 71 gm TP Q4H 04/28/17 04/28/17 Unknown History Ointment] Nystatin Cream [Mycostatin Cream] 1 applic TP BID 04/28/17 04/28/17 Unknown History Polyethylene Glycol 3350 [Miralax 17 gm PO Q6H PRN 04/28/17 04/28/17 Unknown History 3350] Sertraline [Zoloft] 25 mg PO QDAY 04/28/17 04/28/17 Unknown History Vit B Cplx #11/FA/C/Biot/Zn Ox 1 each PO QDAY 04/28/17 04/28/17 Unknown History [Dialyvite with Zinc Tablet] Active Meds: Active Medications Norepinephrine (Levophed Drip 4 Mg/Ns 250 Ml) 4 mg in 250 mls @ 7.5 mls/hr IV TITR RONNIE; 2 MCG/MIN PRN Reason: Protocol Last Titration: 04/29/17 00:39 Dose: 6 mcg/min, 22.5 mls/hr Ondansetron HCl (Zofran) 4 mg IV Q4H PRN PRN Reason: N/V unrelieved by Mark Last Admin: 04/29/17 03:32 Dose: 4 mg Review of Systems - Review of Systems All systems: negative Constitutional: weight loss, poor appetite Gastrointestinal: nausea, BRBPR, hematochezia, no vomiting, no hematemesis, no melena Exam - Constitutional Vital Signs: Temp Pulse Resp BP Pulse Ox 98.4 F 83 13 143/64 100 04/29/17 07:52 04/29/17 07:41 04/29/17 07:41 04/29/17 07:41 04/29/17 08:13 General appearance: no acute distress - EENT Eyes: PERRL, EOM intact ENT: hearing intact - Respiratory Respiratory: bilateral: CTA (anterior) - Cardiovascular Rhythm: regular Heart Sounds: Present: S1 & S2 Extremities: No edema - Gastrointestinal General gastrointestinal: Present: soft, non-tender, non-distended, normal bowel sounds - Integumentary Integumentary: Present: warm, dry - Neurologic Neurological: oriented to person, disoriented - Psychiatric Psychiatric: cooperative - Labs CBC & Chem 7: 04/29/17 03:27 04/29/17 03:27 Lab Results: Laboratory Results - last 24 hr 04/28/17 04/29/17 04/29/17 22:47 03:27 03:27 WBC 14.3 H RBC 3.91 Hgb 11.6 D 11.4 Hct 35.7 D 35.2 MCV 90 MCH 29 MCHC 32 RDW 16.7 H Plt Count 147 Add Manual Diff Complete Total Counted 100 Seg Neutrophils % Deputy Prosecuting Attorney Seg Neuts % (Manual) 99.0 H Band Neutrophils % 0 Lymphocytes % (Manual) 0 L Reactive Lymphs % (Man) 0 Monocytes % (Manual) 1.0 Eosinophils % (Manual) 0 Basophils % (Manual) 0 Metamyelocytes % 0 Myelocytes % 0 Promyelocytes % 0 Blast Cells % 0 Nucleated RBC % Not Reportable Seg Neutrophils # Man 14.2 H Band Neutrophils # 0.0 Lymphocytes # (Manual) 0.0 L Abs React Lymphs (Man) 0.0 Monocytes # (Manual) 0.1 Eosinophils # (Manual) 0.0 Basophils # (Manual) 0.0 Metamyelocytes # 0.0 Myelocytes # 0.0 Promyelocytes # 0.0 Blast Cells # 0.0 WBC Morphology Not Reportable Hypersegmented Neuts Not Reportable Hyposegmented Neuts Not Reportable Hypogranular Neuts Not Reportable Smudge Cells Not Reportable Toxic Granulation Not Reportable Toxic Vacuolation Not Reportable Dohle Bodies Not Reportable Pelger-Huet Anomaly Not Reportable [place] Rods Not Reportable Platelet Estimate Appears normal Clumped Platelets Not Reportable Plt Clumps, EDTA Not Reportable Large Platelets Not Reportable Giant Platelets Not Reportable Platelet Satelliting Not Reportable Plt Morphology Comment Not Reportable RBC Morphology Not Reportable Dimorphic RBCs Not Reportable Polychromasia Not Reportable Hypochromasia Not Reportable Poikilocytosis Not Reportable Anisocytosis 1+ Microcytosis Not Reportable Macrocytosis Not Reportable Spherocytes Not Reportable Pappenheimer Bodies Not Reportable Sickle Cells Not Reportable Target Cells Not Reportable Tear Drop Cells Not Reportable Ovalocytes Not Reportable Helmet Cells Not Reportable [place] Bodies Not Reportable [place] Rings Not Reportable Ruddy Cells Not Reportable Bite Cells Not Reportable Crenated Cell Not Reportable Elliptocytes Not Reportable Acanthocytes (Spur) Not Reportable Rouleaux Not Reportable Hemoglobin C Crystals Not Reportable Schistocytes Not Reportable Malaria parasites Not Reportable Jerry Bodies Not Reportable Hem Pathologist Commnt No Sodium 142 Potassium 4.8 D Chloride 97.7 L Carbon Dioxide 27 Anion Gap 22 BUN 20 H Creatinine 2.5 H Estimated GFR 23 BUN/Creatinine Ratio 8.00 Glucose 245 H POC Glucose Calcium 8.2 L 08/04/17 04:04 WBC RBC Hgb Hct MCV MCH MCHC RDW Plt Count Add Manual Diff Total Counted Seg Neutrophils % Seg Neuts % (Manual) Band Neutrophils % Lymphocytes % (Manual) Reactive Lymphs % (Man) Monocytes % (Manual) Eosinophils % (Manual) Basophils % (Manual) Metamyelocytes % Myelocytes % Promyelocytes % Blast Cells % Nucleated RBC % Seg Neutrophils # Man Band Neutrophils # Lymphocytes # (Manual) Abs React Lymphs (Man) Monocytes # (Manual) Eosinophils # (Manual) Basophils # (Manual) Metamyelocytes # Myelocytes # Promyelocytes # Blast Cells # WBC Morphology Hypersegmented Neuts Hyposegmented Neuts Hypogranular Neuts Smudge Cells Toxic Granulation Toxic Vacuolation Dohle Bodies Pelger-Huet Anomaly [place] Rods Platelet Estimate Clumped Platelets Plt Clumps, EDTA Large Platelets Giant Platelets Platelet Satelliting Plt Morphology Comment RBC Morphology Dimorphic RBCs Polychromasia Hypochromasia Poikilocytosis Anisocytosis Microcytosis Macrocytosis Spherocytes Pappenheimer Bodies Sickle Cells Target Cells Tear Drop Cells Ovalocytes Helmet Cells [place] Bodies [place] Rings Ruddy Cells Bite Cells Crenated Cell Elliptocytes Acanthocytes (Spur) Rouleaux Hemoglobin C Crystals Schistocytes Malaria parasites Jerry Bodies Hem Pathologist Commnt Sodium Potassium Chloride Carbon Dioxide Anion Gap BUN Creatinine Estimated GFR BUN/Creatinine Ratio Glucose POC Glucose 276 H Calcium Assessment and Plan 1.GI bleed 2.BRBPR 3.hematochezia -HGB 11.4 today- s/p transfusion of 2 units PRBCs -continue to monitor H&H and transfuse as needed -hold blood thinning medications -no active signs of bleeding overnight or this am per nursing -bleeding scan-negative- with no evidence of active GI bleeding -pt currently hemodynamically stable but still on levaphed gtt -continue supportive care -clear liquid diet today as tolerated, then NPO after MN -will schedule for a colonoscopy in am -if overt bleeding develops, would consider ordering a CT angiogram -will follow <GERSON BRADSHAW - Last Filed: 04/29/17 10:10> Medications and Allergies Active Meds: Active Medications Norepinephrine (Levophed Drip 4 Mg/Ns 250 Ml) 4 mg in 250 mls @ 7.5 mls/hr IV TITR RONNIE; 2 MCG/MIN PRN Reason: Protocol Last Titration: 04/29/17 00:39 Dose: 6 mcg/min, 22.5 mls/hr Ondansetron HCl (Zofran) 4 mg IV Q4H PRN PRN Reason: N/V unrelieved by Mark Last Admin: 04/29/17 03:32 Dose: 4 mg Polyethylene Glycol/Electrolytes (Golytely) 4,000 ml PO ONCE ONE Stop: 04/29/17 09:55 Exam - Constitutional Vital Signs: Temp Pulse Resp BP Pulse Ox 98.4 F 83 13 143/64 100 04/29/17 07:52 04/29/17 07:41 04/29/17 07:41 04/29/17 07:41 04/29/17 08:13 - Labs CBC & Chem 7: 04/29/17 03:27 04/29/17 03:27 Lab Results: Laboratory Results - last 24 hr 04/28/17 04/29/17 04/29/17 22:47 03:27 03:27 WBC 14.3 H RBC 3.91 Hgb 11.6 D 11.4 Hct 35.7 D 35.2 MCV 90 MCH 29 MCHC 32 RDW 16.7 H Plt Count 147 Add Manual Diff Complete Total Counted 100 Seg Neutrophils % Deputy Prosecuting Attorney Seg Neuts % (Manual) 99.0 H Band Neutrophils % 0 Lymphocytes % (Manual) 0 L Reactive Lymphs % (Man) 0 Monocytes % (Manual) 1.0 Eosinophils % (Manual) 0 Basophils % (Manual) 0 Metamyelocytes % 0 Myelocytes % 0 Promyelocytes % 0 Blast Cells % 0 Nucleated RBC % Not Reportable Seg Neutrophils # Man 14.2 H Band Neutrophils # 0.0 Lymphocytes # (Manual) 0.0 L Abs React Lymphs (Man) 0.0 Monocytes # (Manual) 0.1 Eosinophils # (Manual) 0.0 Basophils # (Manual) 0.0 Metamyelocytes # 0.0 Myelocytes # 0.0 Promyelocytes # 0.0 Blast Cells # 0.0 WBC Morphology Not Reportable Hypersegmented Neuts Not Reportable Hyposegmented Neuts Not Reportable Hypogranular Neuts Not Reportable Smudge Cells Not Reportable Toxic Granulation Not Reportable Toxic Vacuolation Not Reportable Dohle Bodies Not Reportable Pelger-Huet Anomaly Not Reportable [place] Rods Not Reportable Platelet Estimate Appears normal Clumped Platelets Not Reportable Plt Clumps, EDTA Not Reportable Large Platelets Not Reportable Giant Platelets Not Reportable Platelet Satelliting Not Reportable Plt Morphology Comment Not Reportable RBC Morphology Not Reportable Dimorphic RBCs Not Reportable Polychromasia Not Reportable Hypochromasia Not Reportable Poikilocytosis Not Reportable Anisocytosis 1+ Microcytosis Not Reportable Macrocytosis Not Reportable Spherocytes Not Reportable Pappenheimer Bodies Not Reportable Sickle Cells Not Reportable Target Cells Not Reportable Tear Drop Cells Not Reportable Ovalocytes Not Reportable Helmet Cells Not Reportable [place] Bodies Not Reportable [place] Rings Not Reportable [place] Cells Not Reportable Bite Cells Not Reportable Crenated Cell Not Reportable Elliptocytes Not Reportable Acanthocytes (Spur) Not Reportable Rouleaux Not Reportable Hemoglobin C Crystals Not Reportable Schistocytes Not Reportable Malaria parasites Not Reportable Jerry Bodies Not Reportable Hem Pathologist Commnt No Sodium 142 Potassium 4.8 D Chloride 97.7 L Carbon Dioxide 27 Anion Gap 22 BUN 20 H Creatinine 2.5 H Estimated GFR 23 BUN/Creatinine Ratio 8.00 Glucose 245 H POC Glucose Calcium 8.2 L 04/29/17 04:04 WBC RBC Hgb Hct MCV MCH MCHC RDW Plt Count Add Manual Diff Total Counted Seg Neutrophils % Seg Neuts % (Manual) Band Neutrophils % Lymphocytes % (Manual) Reactive Lymphs % (Man) Monocytes % (Manual) Eosinophils % (Manual) Basophils % (Manual) Metamyelocytes % Myelocytes % Promyelocytes % Blast Cells % Nucleated RBC % Seg Neutrophils # Man Band Neutrophils # Lymphocytes # (Manual) Abs React Lymphs (Man) Monocytes # (Manual) Eosinophils # (Manual) Basophils # (Manual) Metamyelocytes # Myelocytes # Promyelocytes # Blast Cells # WBC Morphology Hypersegmented Neuts Hyposegmented Neuts Hypogranular Neuts Smudge Cells Toxic Granulation Toxic Vacuolation Dohle Bodies Pelger-Huet Anomaly [place] Rods Platelet Estimate Clumped Platelets Plt Clumps, EDTA Large Platelets Giant Platelets Platelet Satelliting Plt Morphology Comment RBC Morphology Dimorphic RBCs Polychromasia Hypochromasia Poikilocytosis Anisocytosis Microcytosis Macrocytosis Spherocytes Pappenheimer Bodies Sickle Cells Target Cells Tear Drop Cells Ovalocytes Helmet Cells [place] Bodies [place] Rings Jackson Cells Bite Cells Crenated Cell Elliptocytes Acanthocytes (Spur) Rouleaux Hemoglobin C Crystals Schistocytes Malaria parasites Jerry Bodies Hem Pathologist Commnt Sodium Potassium Chloride Carbon Dioxide Anion Gap BUN Creatinine Estimated GFR BUN/Creatinine Ratio Glucose POC Glucose 276 H Calcium Assessment and Plan Patient seen and examined. Agree with note by Annita Vazquez. Patient presents with new onset hematochezia x 1 day (multiple episodes of maroon blood per rectum with clots). Patient hypotensive in ED, currently on levophed, but being weaned off. No further bleeding since early this morning in the ED. Bleeding scan negative for active bleeding. Labs improved with blood transfusions. Pt's daughter at bedside who helps provide some history for pt ( not diagnosed with dementia, but has some memory loss per pt's daughter). She denies abd pain or prior bleeding. -cont monitoring in ICU -monitor H/H, transfuse prn -prep this evening for colonoscopy +/- EGD tomorrow
[2017-04-29] MEDS ORDERED: GOLYTELY PO ONE (09:54)
[2017-04-29 11:00] LABS: Basophils % (Auto) 0.1 % (0.0-1.8); Hematocrit 33.9 % (30.3-42.9); Hemoglobin 11.1 gm/dl (10.1-14.3); Mean Corpuscular HGB Conc 33 % (30-34); Mean Corpuscular Hemoglobin 29 pg (28-32); Mean Corpuscular Volume 89 fl (79-97); Platelet Count 149 K/mm3 (140-440); Red Blood Count 3.79 M/mm3 (3.65-5.03); Red Cell Distribution Width 16.3 % (13.2-15.2); White Blood Count 14.9 K/mm3 (4.5-11.0)
--- NOTE | 2017-04-29 12:06 | Consultation ---
History of Present Illness - Reason for Consult Consult date: 04/29/17 GI bleed, shock, possible hemorrhagic Requesting physician: BRENNAN DARNELL - History of Present Illness 76 y/o female admitted to ICU with GI bleed and witnessed bright red blood from bottom. Hypotensive as well in ED so placed on pressors, central line placed and transitioned to unit. She has not required transfusion and is currently on levo at 2 mcgs. Past History Past Medical History: diabetes, ESRD (on HD), heart failure Past Surgical History: appendectomy, , hysterectomy, total knee replacement, Other (elbow, AV fistula) Social history: full code, other ([facility] resident). denies: smoking, alcohol abuse Family history: diabetes, hypertension Medications and Allergies Allergies Allergy/AdvReac Type Severity Reaction Status Date / Time metformin Allergy Unknown Verified 02/08/17 15:03 Home Medications Medication Instructions Recorded Confirmed Last Taken Type ALBUTEROL NEB's [Proventil] 2.5 mg IH Q6H PRN 02/08/17 04/28/17 02/16/17 History Acetaminophen [Acetaminophen ER 650 mg PO Q6HR PRN 02/08/17 04/28/17 02/16/17 History TAB] Carvedilol [Coreg] 6.25 mg PO BID 02/08/17 04/28/17 02/17/17 05:05 History Enoxaparin [Lovenox] 30 mg SQ QDAY 02/08/17 04/28/17 02/16/17 History Ergocalciferol (Vitamin D2) 5,000 unit PO DAILY 02/08/17 04/28/17 02/16/17 History [Vitamin D2] Esomeprazole Magnesium [NexIUM] 40 mg PO QDAY 02/08/17 04/28/17 02/17/17 05:05 History Gabapentin [Neurontin] 100 mg PO Q8HR 02/08/17 04/28/17 02/16/17 History Insulin Aspart Prot/Aspart(Nf) 0 units SQ TIDAC 02/08/17 04/28/17 02/16/17 History [Novolog Mix 70/30] Insulin Glargine [Lantus] 15 unit SUB-Q QHS 02/08/17 04/28/17 02/16/17 History Melatonin [Melatin] 3 mg PO QHS 0504/28/17 02/16/17 History Polyethylene Glycol 3350 [Miralax 17 gm PO Q6H PRN 02/08/17 04/28/17 02/16/17 History 3350] Pravastatin Sodium [Pravastatin] 40 mg PO QDAY 02/08/17 04/28/17 02/17/17 05:05 History Ascorbic Acid [Vitamin C] 500 mg PO DAILY 02/17/17 04/28/17 02/17/17 History Aspirin [Adult Low Dose Aspirin EC] 81 mg PO DAILY 02/17/17 04/28/17 02/16/17 History HYDROcodone/APAP 5-325 [[place] 1 each PO Q4HR PRN #60 tablet 02/17/17 04/28/17 Unknown Rx 5/325] Cyproheptadine HCl 4 mg PO TID 04/28/17 04/28/17 Unknown History Menthol/Zinc Oxide [Calmoseptine 71 gm TP Q4H 04/28/17 04/28/17 Unknown History Ointment] Nystatin Cream [Mycostatin Cream] 1 applic TP BID 04/28/17 04/28/17 Unknown History Polyethylene Glycol 3350 [Miralax 17 gm PO Q6H PRN 04/28/17 04/28/17 Unknown History 3350] Sertraline [Zoloft] 25 mg PO QDAY 04/28/17 04/28/17 Unknown History Vit B Cplx #11/FA/C/Biot/Zn Ox 1 each PO QDAY 04/28/17 04/28/17 Unknown History [Dialyvite with Zinc Tablet] Active Meds: Active Medications Norepinephrine (Levophed Drip 4 Mg/Ns 250 Ml) 4 mg in 250 mls @ 7.5 mls/hr IV TITR RONNIE; 2 MCG/MIN PRN Reason: Protocol Last Titration: 04/29/17 00:39 Dose: 6 mcg/min, 22.5 mls/hr Ondansetron HCl (Zofran) 4 mg IV Q4H PRN PRN Reason: N/V unrelieved by Mark Last Admin: 04/29/17 03:32 Dose: 4 mg Exam - Constitutional Vitals: Temp Pulse Resp BP Pulse Ox 98.4 F 86 11 L 131/51 100 04/29/17 11:00 04/29/17 10:51 04/29/17 11:00 04/29/17 11:00 04/29/17 11:00 Results - Labs CBC & Chem 7: 04/29/17 10:48 04/29/17 03:27 Labs: Abnormal lab results 04/29/17 04/29/17 04/29/17 Range/Units 03:27 03:27 04:04 WBC 14.3 H (4.5-11.0) K/mm3 RDW 16.7 H (13.2-15.2) % Lymph % (Auto) (13.4-35.0) % Seg Neutrophils % (40.0-70.0) % Seg Neuts % (Manual) 99.0 H (40.0-70.0) % Lymphocytes % (Manual) 0 L (13.4-35.0) % Seg Neutrophils # (1.8-7.7) K/mm3 Seg Neutrophils # Man 14.2 H (1.8-7.7) K/mm3 Lymphocytes # (Manual) 0.0 L (1.2-5.4) K/mm3 Chloride 97.7 L (98-107) mmol/L BUN 20 H (7-17) mg/dL Creatinine 2.5 H (0.7-1.2) mg/dL Glucose 245 H (65-100) mg/dL POC Glucose 276 H (70-105) Calcium 8.2 L (8.4-10.2) mg/dL 04/29/17 Range/Units 10:48 WBC 14.9 H (4.5-11.0) K/mm3 RDW 16.3 H (13.2-15.2) % Lymph % (Auto) 10.7 L (13.4-35.0) % Seg Neutrophils % 85.8 H (40.0-70.0) % Seg Neuts % (Manual) (40.0-70.0) % Lymphocytes % (Manual) (13.4-35.0) % Seg Neutrophils # 12.8 H (1.8-7.7) K/mm3 Seg Neutrophils # Man (1.8-7.7) K/mm3 Lymphocytes # (Manual) (1.2-5.4) K/mm3 Chloride (98-107) mmol/L BUN (7-17) mg/dL Creatinine (0.7-1.2) mg/dL Glucose (65-100) mg/dL POC Glucose (70-105) Calcium (8.4-10.2) mg/dL Assessment and Plan 76 y/o female with hypotension and GI bleed and chronic renal failure on HD 1. q6 hour H/H's 2. has 2 peripheral IV's and central line 3. Montior BP here in ICU 4. Thankful for GI recs 5. HD per renal 6. Overall prognosis is guarded CCT 31 min
[2017-04-29] MEDS: ANCEF/NS 1 GM/50 ML 1 GM/50 ML BAG IV SCH (13:00)
[2017-04-29 13:53] LABS: Basophils % (Auto) 0.2 % (0.0-1.8); Eosinophils % (Auto) 0.1 % (0.0-4.3); Hematocrit 32.6 % (30.3-42.9); Hemoglobin 10.7 gm/dl (10.1-14.3); Mean Corpuscular HGB Conc 33 % (30-34); Mean Corpuscular Hemoglobin 30 pg (28-32); Mean Corpuscular Volume 91 fl (79-97); Platelet Count 137 K/mm3 (140-440); Red Blood Count 3.58 M/mm3 (3.65-5.03); Red Cell Distribution Width 16.8 % (13.2-15.2); White Blood Count 10.8 K/mm3 (4.5-11.0)
--- NOTE | 2017-04-29 14:28 | Progress Note ---
Subjective Patient Reports: Positive: feels better, bowel movement Narrative: doing fine , no bleeding ., Hcrt 35 will start po liq . Objective Vital Signs - 12hr 04/29/17 04/29/17 04/29/17 03:00 05:00 07:00 Temperature Pulse Rate Pulse Rate [ 88 72 82 Right Apical] Respiratory Rate Blood Pressure O2 Sat by Pulse Oximetry 04/29/17 04/29/17 04/29/17 07:06 07:11 07:21 Temperature Pulse Rate 93 H 88 90 Pulse Rate [ Right Apical] Respiratory 14 18 12 Rate Blood Pressure 136/72 O2 Sat by Pulse Oximetry 04/29/17 04/29/17 04/29/17 07:30 07:41 07:51 Temperature Pulse Rate 86 83 84 Pulse Rate [ Right Apical] Respiratory 19 13 15 Rate Blood Pressure 143/64 143/64 147/47 O2 Sat by Pulse Oximetry 04/29/17 04/29/17 04/29/17 07:52 08:00 08:11 Temperature 98.4 F Pulse Rate 88 78 Pulse Rate [ Right Apical] Respiratory 14 15 Rate Blood Pressure 144/57 147/47 O2 Sat by Pulse 100 Oximetry 04/29/17 04/29/17 04/29/17 08:13 08:21 08:30 Temperature Pulse Rate 82 83 Pulse Rate [ Right Apical] Respiratory 13 16 Rate Blood Pressure 129/54 124/51 O2 Sat by Pulse 100 Oximetry 04/29/17 04/29/17 04/29/17 08:41 08:51 09:01 Temperature Pulse Rate 89 84 91 H Pulse Rate [ Right Apical] Respiratory 13 15 17 Rate Blood Pressure 144/57 141/69 131/46 O2 Sat by Pulse Oximetry 04/29/17 04/29/17 04/29/17 09:10 09:21 09:31 Temperature Pulse Rate 88 86 88 Pulse Rate [ Right Apical] Respiratory 16 14 19 Rate Blood Pressure 124/51 136/54 136/54 O2 Sat by Pulse Oximetry 04/29/17 04/29/17 04/29/17 09:41 09:51 10:00 Temperature Pulse Rate 82 93 H 86 Pulse Rate [ Right Apical] Respiratory 17 13 Rate Blood Pressure 136/54 121/96 O2 Sat by Pulse Oximetry 04/29/17 04/29/17 04/29/17 10:01 10:11 10:21 Temperature Pulse Rate 89 98 H 93 H Pulse Rate [ Right Apical] Respiratory 10 L 18 21 Rate Blood Pressure 121/96 121/96 115/62 O2 Sat by Pulse Oximetry 04/29/17 04/29/17 04/29/17 10:31 10:41 10:51 Temperature Pulse Rate 82 80 86 Pulse Rate [ Right Apical] Respiratory 14 23 11 L Rate Blood Pressure 125/53 125/53 131/51 O2 Sat by Pulse Oximetry 04/29/17 04/29/17 04/29/17 11:00 11:11 11:21 Temperature 98.4 F Pulse Rate 80 78 91 H Pulse Rate [ Right Apical] Respiratory 11 L 24 16 Rate Blood Pressure 119/48 119/48 117/40 O2 Sat by Pulse 100 Oximetry 04/29/17 04/29/17 04/29/17 11:31 11:41 11:51 Temperature Pulse Rate 80 79 83 Pulse Rate [ Right Apical] Respiratory 13 15 14 Rate Blood Pressure 107/39 107/39 111/40 O2 Sat by Pulse Oximetry 04/29/17 04/29/17 04/29/17 12:00 12:11 12:21 Temperature 98.3 F Pulse Rate 79 74 79 Pulse Rate [ Right Apical] Respiratory 13 22 15 Rate Blood Pressure 92/32 92/32 106/41 O2 Sat by Pulse Oximetry 04/29/17 04/29/17 04/29/17 12:30 12:41 12:51 Temperature Pulse Rate 82 82 83 Pulse Rate [ Right Apical] Respiratory 15 14 19 Rate Blood Pressure 122/73 122/73 118/53 O2 Sat by Pulse Oximetry 04/29/17 04/29/17 04/29/17 13:00 13:11 13:21 Temperature Pulse Rate 82 84 79 Pulse Rate [ Right Apical] Respiratory 17 21 15 Rate Blood Pressure 93/37 104/44 127/49 O2 Sat by Pulse Oximetry 04/29/17 04/29/17 04/29/17 13:31 13:41 13:51 Temperature Pulse Rate 83 77 78 Pulse Rate [ Right Apical] Respiratory 13 15 18 Rate Blood Pressure 127/49 127/49 127/49 O2 Sat by Pulse Oximetry 04/29/17 14:01 Temperature Pulse Rate 77 Pulse Rate [ Right Apical] Respiratory 22 Rate Blood Pressure 127/49 O2 Sat by Pulse Oximetry - Labs 04/29/17 13:36 04/29/17 03:27 Diabetes panel 04/29/17 Range/Units 03:27 Sodium 142 (137-145) mmol/L Potassium 4.8 D (3.6-5.0) mmol/L Chloride 97.7 L (98-107) mmol/L Carbon Dioxide 27 (22-30) mmol/L BUN 20 H (7-17) mg/dL Creatinine 2.5 H (0.7-1.2) mg/dL Glucose 245 H (65-100) mg/dL Calcium 8.2 L (8.4-10.2) mg/dL Calcium panel 04/29/17 Range/Units 03:27 Calcium 8.2 L (8.4-10.2) mg/dL Pituitary panel 04/29/17 Range/Units 03:27 Sodium 142 (137-145) mmol/L Potassium 4.8 D (3.6-5.0) mmol/L Chloride 97.7 L (98-107) mmol/L Carbon Dioxide 27 (22-30) mmol/L BUN 20 H (7-17) mg/dL Creatinine 2.5 H (0.7-1.2) mg/dL Glucose 245 H (65-100) mg/dL Calcium 8.2 L (8.4-10.2) mg/dL Adrenal panel 04/29/17 Range/Units 03:27 Sodium 142 (137-145) mmol/L Potassium 4.8 D (3.6-5.0) mmol/L Chloride 97.7 L (98-107) mmol/L Carbon Dioxide 27 (22-30) mmol/L BUN 20 H (7-17) mg/dL Creatinine 2.5 H (0.7-1.2) mg/dL Glucose 245 H (65-100) mg/dL Calcium 8.2 L (8.4-10.2) mg/dL
--- NOTE | 2017-04-29 15:54 | Progress Note ---
Assessment and Plan Assessment and plan: Patient is a 76-year-old woman from [facility] with a history of end- stage renal disease on hemodialysis, diabetes mellitus type 2, heart failure who presents with GI bleed. It appears she had blood clots in her diaper, she was hypotensive so started on Levophed drip and admitted to ICU. Daughter Jenna , the stated power of immigration attorney, at bedside says that her mother has some form of cognitive impairment but no official diagnosis of dementia but her memory does waxes and wanes at baseline. Patient was admitted to [facility] November 2016 for odyphagia and was started on daily PPI per GI. PCP is Dr. Nael Garcia. Hemoglobin was 8.4 and she received 2 units of blood. -Hypovolemic shock: On IV Levophed, try to wean -Acute metabolic encephalopathy: Treat the anemia -Acute on chronic GI blood loss anemia status post 2 units: Repeat CBC in a.m. -End Stage renal disease on hemodialysis: Consult nephrology -DVT prophylaxis: SCDs only due to blood loss anemia -Type 2 diabetes mellitus: As sliding-scale, Accu-Cheks, diabetic diet once cleared by consultants Full code, did discuss advanced directives with daughter Jenna at bedside due to GI blood loss anemia The high probability of a clinically significant, sudden or life threatening deterioration of the [neurologic,cardiac] system(s) required my full and direct attention, intervention and personal management. The aggregate critical care time was [35] minutes. This time is in addition to time spent performing reported procedures but includes the following: [x] Data Review and interpretation [x] Patient assessment and monitoring of vital signs [x] Documentation [x] Medication orders and management History Interval history: Patient seen and examined. Follow up on current diagnosis GI bleed. Overnight uneventful. No cp, sob, n/v or severe headaches. Imaging, old records, testing, labs, nursing notes reviewed. Daughter Jenna at bedside Hospitalist Physical - Physical exam Narrative exam: GEN: Thin and frail NAD, AWAKE, ALERT, ORIENTATED x 1 HEENT: NCAT, PERRL, EOMI, OP CLEAR NECK: SUPPLE, NO THYROMEGALY, NO JVD, NO LAD CVS: RRR, NORMAL S1S2 LUNGS/CHEST: CTA B, NORMAL CHEST EXPANSION B, GOOD AIR ENTRY B ABD: SOFT, NTND, GBS, NO REBOUND OR GUARDING EXT/SKIN: NO SIGNIFICANT EDEMA OR RASH MSK: FROM X 4 EXTREMITIES NEURO: CN 2-12 GROSSLY INTACT, NO new FOCAL DEFICITS PSY: CALM - Constitutional Vitals: Temp Pulse Resp BP Pulse Ox 98.3 F 77 22 127/49 100 04/29/17 12:00 04/29/17 14:01 04/29/17 14:01 04/29/17 14:01 04/29/17 11:00 Results - Labs CBC & Chem 7: 04/29/17 13:36 04/29/17 03:27 Labs: Laboratory Last Values WBC 10.8 K/mm3 (4.5-11.0) 04/29/17 13:36 RBC 3.58 M/mm3 (3.65-5.03) L 04/29/17 13:36 Hgb 10.7 gm/dl (10.1-14.3) 04/29/17 13:36 Hct 32.6 % (30.3-42.9) 04/29/17 13:36 MCV 91 fl (79-97) 04/29/17 13:36 MCH 30 pg (28-32) 04/29/17 13:36 MCHC 33 % (30-34) 04/29/17 13:36 RDW 16.8 % (13.2-15.2) H 04/29/17 13:36 Plt Count 137 K/mm3 (140-440) L 04/29/17 13:36 Lymph % (Auto) 11.8 % (13.4-35.0) L 04/29/17 13:36 [place] % (Auto) 4.4 % (0.0-7.3) 04/29/17 13:36 Eos % (Auto) 0.1 % (0.0-4.3) 04/29/17 13:36 Baso % (Auto) 0.2 % (0.0-1.8) 04/29/17 13:36 Lymph # 1.3 K/mm3 (1.2-5.4) 04/29/17 13:36 [place] # 0.5 K/mm3 (0.0-0.8) 04/29/17 13:36 Eos # 0.0 K/mm3 (0.0-0.4) 04/29/17 13:36 Baso # 0.0 K/mm3 (0.0-0.1) 04/29/17 13:36 Add Manual Diff Complete 04/29/17 03:27 Total Counted 100 04/29/17 03:27 Seg Neutrophils % 83.5 % (40.0-70.0) H 04/29/17 13:36 Seg Neuts % (Manual) 99.0 % (40.0-70.0) H 04/29/17 03:27 Band Neutrophils % 0 % 04/29/17 03:27 Lymphocytes % (Manual) 0 % (13.4-35.0) L 04/29/17 03:27 Reactive Lymphs % (Man) 0 % 04/29/17 03:27 Monocytes % (Manual) 1.0 % (0.0-7.3) 04/29/17 03:27 Eosinophils % (Manual) 0 % (0.0-4.3) 04/29/17 03:27 Basophils % (Manual) 0 % (0.0-1.8) 04/29/17 03:27 Metamyelocytes % 0 % 04/29/17 03:27 Myelocytes % 0 % 04/29/17 03:27 Promyelocytes % 0 % 04/29/17 03:27 Blast Cells % 0 % 04/29/17 03:27 Nucleated RBC % Not Reportable 04/29/17 03:27 Seg Neutrophils # 9.0 K/mm3 (1.8-7.7) H 04/29/17 13:36 Seg Neutrophils # Man 14.2 K/mm3 (1.8-7.7) H 04/29/17 03:27 Band Neutrophils # 0.0 K/mm3 04/29/17 03:27 Lymphocytes # (Manual) 0.0 K/mm3 (1.2-5.4) L 04/29/17 03:27 Abs React Lymphs (Man) 0.0 K/mm3 04/29/17 03:27 Monocytes # (Manual) 0.1 K/mm3 (0.0-0.8) 04/29/17 03:27 Eosinophils # (Manual) 0.0 K/mm3 (0.0-0.4) 04/29/17 03:27 Basophils # (Manual) 0.0 K/mm3 (0.0-0.1) 04/29/17 03:27 Metamyelocytes # 0.0 K/mm3 04/29/17 03:27 Myelocytes # 0.0 K/mm3 04/29/17 03:27 Promyelocytes # 0.0 K/mm3 04/29/17 03:27 Blast Cells # 0.0 K/mm3 04/29/17 03:27 WBC Morphology Not Reportable 04/29/17 03:27 Hypersegmented Neuts Not Reportable 04/29/17 03:27 Hyposegmented Neuts Not Reportable 04/29/17 03:27 Hypogranular Neuts Not Reportable 04/29/17 03:27 Smudge Cells Not Reportable 04/29/17 03:27 Toxic Granulation Not Reportable 04/29/17 03:27 Toxic Vacuolation Not Reportable 04/29/17 03:27 Dohle Bodies Not Reportable 04/29/17 03:27 Pelger-Huet Anomaly Not Reportable 04/29/17 03:27 Charlotte Rods Not Reportable 04/29/17 03:27 Platelet Estimate Appears normal 04/29/17 03:27 Clumped Platelets Not Reportable 04/29/17 03:27 Plt Clumps, EDTA Not Reportable 04/29/17 03:27 Large Platelets Not Reportable 04/29/17 03:27 Giant Platelets Not Reportable 04/29/17 03:27 Platelet Satelliting Not Reportable 04/29/17 03:27 Plt Morphology Comment Not Reportable 04/29/17 03:27 RBC Morphology Not Reportable 04/29/17 03:27 Dimorphic RBCs Not Reportable 04/29/17 03:27 Polychromasia Not Reportable 04/29/17 03:27 Hypochromasia Not Reportable 04/29/17 03:27 Poikilocytosis Not Reportable 04/29/17 03:27 Anisocytosis 1+ 04/29/17 03:27 Microcytosis Not Reportable 04/29/17 03:27 Macrocytosis Not Reportable 04/29/17 03:27 Spherocytes Not Reportable 04/29/17 03:27 Pappenheimer Bodies Not Reportable 04/29/17 03:27 Sickle Cells Not Reportable 04/29/17 03:27 Target Cells Not Reportable 04/29/17 03:27 Tear Drop Cells Not Reportable 04/29/17 03:27 Ovalocytes Not Reportable 04/29/17 03:27 Helmet Cells Not Reportable 04/29/17 03:27 V[place]-Almond Bodies Not Reportable 04/29/17 03:27 Lagro Rings Not Reportable 04/29/17 03:27 Ruddy Cells Not Reportable 04/29/17 03:27 Bite Cells Not Reportable 04/29/17 03:27 Crenated Cell Not Reportable 04/29/17 03:27 Elliptocytes Not Reportable 04/29/17 03:27 Acanthocytes (Spur) Not Reportable 04/29/17 03:27 Rouleaux Not Reportable 04/29/17 03:27 Hemoglobin C Crystals Not Reportable 04/29/17 03:27 Schistocytes Not Reportable 04/29/17 03:27 Malaria parasites Not Reportable 04/29/17 03:27 Jerry Bodies Not Reportable 04/29/17 03:27 Hem Pathologist Commnt No 04/29/17 03:27 PT 17.0 Sec. (12.2-14.9) H 04/28/17 18:20 INR 1.31 (0.87-1.13) H 04/28/17 18:20 APTT 36.5 Sec. (24.2-36.6) 04/28/17 18:20 Sodium 142 mmol/L (137-145) 04/29/17 03:27 Potassium 4.8 mmol/L (3.6-5.0) D 04/29/17 03:27 Chloride 97.7 mmol/L (98-107) L 04/29/17 03:27 Carbon Dioxide 27 mmol/L (22-30) 04/29/17 03:27 Anion Gap 22 mmol/L 04/29/17 03:27 BUN 20 mg/dL (7-17) H 04/29/17 03:27 Creatinine 2.5 mg/dL (0.7-1.2) H 04/29/17 03:27 Estimated GFR 23 ml/min 04/29/17 03:27 BUN/Creatinine Ratio 8.00 % 04/29/17 03:27 Glucose 245 mg/dL (65-100) H 04/29/17 03:27 POC Glucose 257 (70-105) H 04/29/17 11:51 Lactic Acid 4.00 mmol/L (0.7-2.0) H* 04/28/17 20:12 Calcium 8.2 mg/dL (8.4-10.2) L 04/29/17 03:27 Total Bilirubin 0.90 mg/dL (0.1-1.2) 04/28/17 18:20 AST 19 units/L (5-40) 04/28/17 18:20 ALT 11 units/L (7-56) 04/28/17 18:20 Alkaline Phosphatase 77 units/L (35-129) 04/28/17 18:20 Total Protein 5.2 g/dL (6.3-8.2) L 04/28/17 18:20 Albumin 2.3 g/dL (3.9-5) L 04/28/17 18:20 Albumin/Globulin Ratio 0.8 % 04/28/17 18:20 Blood Type B NEGATIVE 04/28/17 18:20 Antibody Screen TNR 04/28/17 18:20 JOSÉ LUIS Antibody Screen Positive 04/28/17 18:20 Antibody Identification Anti-D (Actively Aquired) 04/28/17 18:20 Crossmatch See Detail 04/28/17 18:20
[2017-04-29 19:46] LABS: Basophils % (Auto) 0.2 % (0.0-1.8); Hematocrit 29.2 % (30.3-42.9); Hemoglobin 9.8 gm/dl (10.1-14.3); Mean Corpuscular HGB Conc 34 % (30-34); Mean Corpuscular Hemoglobin 30 pg (28-32); Mean Corpuscular Volume 90 fl (79-97); Platelet Count 136 K/mm3 (140-440); Red Blood Count 3.27 M/mm3 (3.65-5.03); White Blood Count 10.2 K/mm3 (4.5-11.0)
[2017-04-30 04:55] LABS: Basophils % (Auto) 0.2 % (0.0-1.8); Eosinophils % (Auto) 0.1 % (0.0-4.3); Hematocrit 30.5 % (30.3-42.9); Hemoglobin 10.1 gm/dl (10.1-14.3); Mean Corpuscular HGB Conc 33 % (30-34); Mean Corpuscular Hemoglobin 30 pg (28-32); Mean Corpuscular Volume 90 fl (79-97); Platelet Count 137 K/mm3 (140-440); Red Blood Count 3.37 M/mm3 (3.65-5.03); Red Cell Distribution Width 17.2 % (13.2-15.2); White Blood Count 10.4 K/mm3 (4.5-11.0)
[2017-04-30] MEDS: ZOFRAN IV PRN (05:23)
[2017-04-30] MEDS ORDERED: WATER FOR IRRIG STERILE ONE (08:36)
[2017-04-30] MEDS ORDERED: WATER FOR IRRIG STERILE IR ONE (08:36)
[2017-04-30] MEDS ORDERED: GI SPOT IJ ONE (08:37)
[2017-04-30] MEDS ORDERED: NACL 0.9% 1000 ML 1,000 ML ONE (08:59)
[2017-04-30] MEDS ORDERED: XYLOCAINE MPF 2% ONE (09:00)
--- NOTE | 2017-04-30 09:37 | Anesthesia Day of Surgery ---
Anesthesia Day of Surgery - Day of Surgery Patient Examined: Yes Patient H&P Reviewed: Yes Patient is NPO: Yes
--- NOTE | 2017-04-30 09:37 | Anesthesia Consultation ---
Anesthesia Consult and Med Hx Date of service: 04/30/17 - Airway ROM Head & Neck: Adequate Mental/Hyoid Distance: Adequate Intubation Access Assessment: Probably Good - Pulmonary Exam CTA: Yes - Cardiac Exam Cardiac Exam: RRR - Pre-Operative Health Status ASA Pre-Surgery Classification: ASA4 Proposed Anesthetic Plan: MAC - Pulmonary Hx Smoking: Yes (CIGARETTES 1 PPD X 20 YRS, QUIT IN 1995) SOB: Yes (FROM CUSTODIAL HX) Hx Sleep Apnea: No - Cardiovascular System Hx Hypertension: Yes (H/O CHF) Hx Valvular Heart Disease: Yes (AORTIC STENOSIS-FROM CUSTODIAL HX) - Endocrine Hx Renal Disease: Yes (dialysis) Hx End Stage Renal Disease: Yes Hx Insulin Dependent Diabetes: Yes - Hematic Hx Anemia: Yes - Other Systems Hx Cancer: No Hx Obesity: Yes (FROM CUSTODIAL HX) - Additional Comments Anesthesia Medical History Comments: Patient remains on a levophed drip with systolic BP about 100.
[2017-04-30] MEDS ORDERED: DIPRIVAN 10 MG/ML IV ONE ×3 (10:01)
[2017-04-30] MEDS ORDERED: VERSED ONE (10:02)
--- NOTE | 2017-04-30 11:14 | Progress Note ---
Assessment and Plan 76 y/o female with hypotension and GI bleed and chronic renal failure on HD 1. Suggest changing to q12 h/h's 2. has 2 peripheral IV's and central line 3. Suggest continued ICU monitoring for the next 24 hours and transfer out on Tuesday. 4. Follow up any GI recs 5. HD per renal 6. Overall prognosis is guarded Subjective Date of service: 04/30/17 Interval history: Scoped this am. Multiple diverticuli with pockets but no active bleeding. This is per report. Nothing official in chart yet. Remains of levophed. Objective - Constitutional Vitals: Vital Signs - 12hr 04/30/17 04/30/17 04/30/17 00:00 01:00 02:00 Temperature 98.3 F Pulse Rate 84 82 89 Pulse Rate [ From Monitor] Respiratory 15 12 16 Rate Blood Pressure 106/49 106/49 123/62 O2 Sat by Pulse 100 100 100 Oximetry 04/30/17 04/30/17 04/30/17 03:00 03:20 04:00 Temperature 98.8 F Pulse Rate 88 82 92 H Pulse Rate [ From Monitor] Respiratory 16 16 Rate Blood Pressure 99/71 99/71 O2 Sat by Pulse 100 100 Oximetry 04/30/17 04/30/17 04/30/17 05:00 06:00 07:00 Temperature Pulse Rate 93 H 83 90 Pulse Rate [ From Monitor] Respiratory 20 14 13 Rate Blood Pressure 99/71 109/73 109/73 O2 Sat by Pulse 98 100 100 Oximetry 04/30/17 04/30/17 04/30/17 08:00 09:00 10:00 Temperature 97.5 F L Pulse Rate 88 96 H 110 H Pulse Rate [ 88 110 H From Monitor] Respiratory 13 12 20 Rate Blood Pressure 122/56 120/60 120/60 O2 Sat by Pulse 100 100 100 Oximetry General appearance: Present: no acute distress - Labs CBC & Chem 7: 04/30/17 04:04 04/29/17 03:27 Labs: Abnormal lab results 04/29/17 04/29/17 04/29/17 Range/Units 11:51 13:36 15:48 RBC 3.58 L (3.65-5.03) M/mm3 Hgb (10.1-14.3) gm/dl Hct (30.3-42.9) % RDW 16.8 H (13.2-15.2) % Plt Count 137 L (140-440) K/mm3 Lymph % (Auto) 11.8 L (13.4-35.0) % [place] % (Auto) (0.0-7.3) % Seg Neutrophils % 83.5 H (40.0-70.0) % Seg Neutrophils # 9.0 H (1.8-7.7) K/mm3 POC Glucose 257 H 200 H (70-105) 04/29/17 04/30/17 04/30/17 Range/Units 19:32 00:00 04:04 RBC 3.27 L 3.37 L (3.65-5.03) M/mm3 Hgb 9.8 L (10.1-14.3) gm/dl Hct 29.2 L (30.3-42.9) % RDW 17.0 H 17.2 H (13.2-15.2) % Plt Count 136 L 137 L (140-440) K/mm3 Lymph % (Auto) 11.3 L 12.3 L (13.4-35.0) % [place] % (Auto) 7.9 H (0.0-7.3) % Seg Neutrophils % 81.8 H 79.5 H (40.0-70.0) % Seg Neutrophils # 8.4 H 8.3 H (1.8-7.7) K/mm3 POC Glucose 250 H (70-105) 04/30/17 Range/Units 07:40 RBC (3.65-5.03) M/mm3 Hgb (10.1-14.3) gm/dl Hct (30.3-42.9) % RDW (13.2-15.2) % Plt Count (140-440) K/mm3 Lymph % (Auto) (13.4-35.0) % [place] % (Auto) (0.0-7.3) % Seg Neutrophils % (40.0-70.0) % Seg Neutrophils # (1.8-7.7) K/mm3 POC Glucose 171 H (70-105)
--- NOTE | 2017-04-30 11:24 | Progress Note ---
Assessment and Plan Assessment and plan: Patient is a 76-year-old woman from [facility] with a history of end- stage renal disease on hemodialysis, diabetes mellitus type 2, heart failure who presents with GI bleed. It appears she had blood clots in her diaper, she was hypotensive so started on Levophed drip and admitted to ICU. Daughter Jenna , the stated power of ip technology transactions attorney, at bedside says that her mother has some form of cognitive impairment but no official diagnosis of dementia but her memory does waxes and wanes at baseline. Patient was admitted to [facility] November 2016 for odyphagia and was started on daily PPI per GI. PCP is Dr. Nael Garcia. Hemoglobin was 8.4 and she received 2 units of blood. -Hypovolemic shock: On IV Levophed, try to wean -Acute metabolic encephalopathy: Treat the anemia -Acute on chronic GI blood loss anemia status post 2 units: Repeat CBC in a.m. -End Stage renal disease on hemodialysis: Consult nephrology -DVT prophylaxis: SCDs only due to blood loss anemia -Type 2 diabetes mellitus: As sliding-scale, Accu-Cheks, diabetic diet once cleared by consultants Full code, did discuss advanced directives with daughter Jenna at bedside due to GI blood loss anemia 04/30/17: Gi scope today, weaning levaphed off. keep in icu History Interval history: Patient seen and examined. Follow up on current diagnosis GI bleed. Overnight uneventful. No cp, sob, n/v or severe headaches. Imaging, old records, testing, labs, nursing notes reviewed. Daughter Jenna at bedside Hospitalist Physical - Physical exam Narrative exam: GEN: Thin and frail NAD, AWAKE, ALERT, ORIENTATED x 1 HEENT: NCAT, PERRL, EOMI, OP CLEAR, conjunctiva is not inflammed NECK: SUPPLE, NO THYROMEGALY, NO JVD, NO LAD CVS: RRR, NORMAL S1S2 LUNGS/CHEST: CTA B, NORMAL CHEST EXPANSION B, GOOD AIR ENTRY B ABD: SOFT, NTND, GBS, NO REBOUND OR GUARDING EXT/SKIN: NO SIGNIFICANT EDEMA OR RASH MSK: FROM X 4 EXTREMITIES NEURO: CN 2-12 GROSSLY INTACT, NO new FOCAL DEFICITS PSY: CALM - Constitutional Vitals: Temp Pulse Resp BP Pulse Ox 97.5 F L 110 H 20 120/60 100 04/30/17 08:00 04/30/17 10:00 04/30/17 10:00 04/30/17 10:00 04/30/17 10:00 General appearance: Present: no acute distress Results - Labs CBC & Chem 7: 04/30/17 04:04 04/29/17 03:27 Labs: Laboratory Last Values WBC 10.4 K/mm3 (4.5-11.0) 04/30/17 04:04 RBC 3.37 M/mm3 (3.65-5.03) L 04/30/17 04:04 Hgb 10.1 gm/dl (10.1-14.3) 04/30/17 04:04 Hct 30.5 % (30.3-42.9) 04/30/17 04:04 MCV 90 fl (79-97) 04/30/17 04:04 MCH 30 pg (28-32) 04/30/17 04:04 MCHC 33 % (30-34) 04/30/17 04:04 RDW 17.2 % (13.2-15.2) H 04/30/17 04:04 Plt Count 137 K/mm3 (140-440) L 04/30/17 04:04 Lymph % (Auto) 12.3 % (13.4-35.0) L 04/30/17 04:04 [place] % (Auto) 7.9 % (0.0-7.3) H 04/30/17 04:04 Eos % (Auto) 0.1 % (0.0-4.3) 04/30/17 04:04 Baso % (Auto) 0.2 % (0.0-1.8) 04/30/17 04:04 Lymph # 1.3 K/mm3 (1.2-5.4) 04/30/17 04:04 [place] # 0.8 K/mm3 (0.0-0.8) 04/30/17 04:04 Eos # 0.0 K/mm3 (0.0-0.4) 04/30/17 04:04 Baso # 0.0 K/mm3 (0.0-0.1) 04/30/17 04:04 Add Manual Diff Complete 04/29/17 03:27 Total Counted 100 04/29/17 03:27 Seg Neutrophils % 79.5 % (40.0-70.0) H 04/30/17 04:04 Seg Neuts % (Manual) 99.0 % (40.0-70.0) H 04/29/17 03:27 Band Neutrophils % 0 % 04/29/17 03:27 Lymphocytes % (Manual) 0 % (13.4-35.0) L 04/29/17 03:27 Reactive Lymphs % (Man) 0 % 04/29/17 03:27 Monocytes % (Manual) 1.0 % (0.0-7.3) 04/29/17 03:27 Eosinophils % (Manual) 0 % (0.0-4.3) 04/29/17 03:27 Basophils % (Manual) 0 % (0.0-1.8) 04/29/17 03:27 Metamyelocytes % 0 % 04/29/17 03:27 Myelocytes % 0 % 04/29/17 03:27 Promyelocytes % 0 % 04/29/17 03:27 Blast Cells % 0 % 04/29/17 03:27 Nucleated RBC % Not Reportable 04/29/17 03:27 Seg Neutrophils # 8.3 K/mm3 (1.8-7.7) H 04/30/17 04:04 Seg Neutrophils # Man 14.2 K/mm3 (1.8-7.7) H 04/29/17 03:27 Band Neutrophils # 0.0 K/mm3 04/29/17 03:27 Lymphocytes # (Manual) 0.0 K/mm3 (1.2-5.4) L 04/29/17 03:27 Abs React Lymphs (Man) 0.0 K/mm3 04/29/17 03:27 Monocytes # (Manual) 0.1 K/mm3 (0.0-0.8) 04/29/17 03:27 Eosinophils # (Manual) 0.0 K/mm3 (0.0-0.4) 04/29/17 03:27 Basophils # (Manual) 0.0 K/mm3 (0.0-0.1) 04/29/17 03:27 Metamyelocytes # 0.0 K/mm3 04/29/17 03:27 Myelocytes # 0.0 K/mm3 04/29/17 03:27 Promyelocytes # 0.0 K/mm3 04/29/17 03:27 Blast Cells # 0.0 K/mm3 04/29/17 03:27 WBC Morphology Not Reportable 04/29/17 03:27 Hypersegmented Neuts Not Reportable 04/29/17 03:27 Hyposegmented Neuts Not Reportable 04/29/17 03:27 Hypogranular Neuts Not Reportable 04/29/17 03:27 Smudge Cells Not Reportable 04/29/17 03:27 Toxic Granulation Not Reportable 04/29/17 03:27 Toxic Vacuolation Not Reportable 04/29/17 03:27 Dohle Bodies Not Reportable 04/29/17 03:27 Pelger-Huet Anomaly Not Reportable 04/29/17 03:27 Charlotte Rods Not Reportable 04/29/17 03:27 Platelet Estimate Appears normal 04/29/17 03:27 Clumped Platelets Not Reportable 04/29/17 03:27 Plt Clumps, EDTA Not Reportable 04/29/17 03:27 Large Platelets Not Reportable 04/29/17 03:27 Giant Platelets Not Reportable 04/29/17 03:27 Platelet Satelliting Not Reportable 04/29/17 03:27 Plt Morphology Comment Not Reportable 04/29/17 03:27 RBC Morphology Not Reportable 04/29/17 03:27 Dimorphic RBCs Not Reportable 04/29/17 03:27 Polychromasia Not Reportable 04/29/17 03:27 Hypochromasia Not Reportable 04/29/17 03:27 Poikilocytosis Not Reportable 04/29/17 03:27 Anisocytosis 1+ 04/29/17 03:27 Microcytosis Not Reportable 04/29/17 03:27 Macrocytosis Not Reportable 04/29/17 03:27 Spherocytes Not Reportable 04/29/17 03:27 Pappenheimer Bodies Not Reportable 04/29/17 03:27 Sickle Cells Not Reportable 04/29/17 03:27 Target Cells Not Reportable 04/29/17 03:27 Tear Drop Cells Not Reportable 04/29/17 03:27 Ovalocytes Not Reportable 04/29/17 03:27 Helmet Cells Not Reportable 04/29/17 03:27 V[place]-Judson Bodies Not Reportable 04/29/17 03:27 Uriah Rings Not Reportable 04/29/17 03:27 Lincoln Cells Not Reportable 04/29/17 03:27 Bite Cells Not Reportable 04/29/17 03:27 Crenated Cell Not Reportable 04/29/17 03:27 Elliptocytes Not Reportable 04/29/17 03:27 Acanthocytes (Spur) Not Reportable 04/29/17 03:27 Rouleaux Not Reportable 04/29/17 03:27 Hemoglobin C Crystals Not Reportable 04/29/17 03:27 Schistocytes Not Reportable 04/29/17 03:27 Malaria parasites Not Reportable 04/29/17 03:27 Jerry Bodies Not Reportable 04/29/17 03:27 Hem Pathologist Commnt No 04/29/17 03:27 PT 17.0 Sec. (12.2-14.9) H 04/28/17 18:20 INR 1.31 (0.87-1.13) H 04/28/17 18:20 APTT 36.5 Sec. (24.2-36.6) 04/28/17 18:20 Sodium 142 mmol/L (137-145) 04/29/17 03:27 Potassium 4.8 mmol/L (3.6-5.0) D 04/29/17 03:27 Chloride 97.7 mmol/L (98-107) L 04/29/17 03:27 Carbon Dioxide 27 mmol/L (22-30) 04/29/17 03:27 Anion Gap 22 mmol/L 04/29/17 03:27 BUN 20 mg/dL (7-17) H 04/29/17 03:27 Creatinine 2.5 mg/dL (0.7-1.2) H 04/29/17 03:27 Estimated GFR 23 ml/min 04/29/17 03:27 BUN/Creatinine Ratio 8.00 % 04/29/17 03:27 Glucose 245 mg/dL (65-100) H 04/29/17 03:27 POC Glucose 171 (70-105) H 04/30/17 07:40 Lactic Acid 4.00 mmol/L (0.7-2.0) H* 04/28/17 20:12 Calcium 8.2 mg/dL (8.4-10.2) L 04/29/17 03:27 Phosphorus 4.10 mg/dL (2.5-4.5) 04/30/17 04:04 Total Bilirubin 0.90 mg/dL (0.1-1.2) 04/28/17 18:20 AST 19 units/L (5-40) 04/28/17 18:20 ALT 11 units/L (7-56) 04/28/17 18:20 Alkaline Phosphatase 77 units/L (35-129) 04/28/17 18:20 Total Protein 5.2 g/dL (6.3-8.2) L 04/28/17 18:20 Albumin 2.3 g/dL (3.9-5) L 04/28/17 18:20 Albumin/Globulin Ratio 0.8 % 04/28/17 18:20 Blood Type B NEGATIVE 04/28/17 18:20 Antibody Screen TNR 04/28/17 18:20 JOSÉ LUIS Antibody Screen Positive 04/28/17 18:20 Antibody Identification Anti-D (Actively Aquired) 04/28/17 18:20 Crossmatch See Detail 04/28/17 18:20
--- NOTE | 2017-04-30 12:13 | Post Operative Note ---
Pre-op diagnosis: gi bleed Post-op diagnosis: same Findings: Colonoscopy: multiple medium/large sigmoid diverticulosis, mild ascending diverticulosis - mild internal hemorrhoids - negative other Procedure: colonoscopy Anesthesia: MAC Surgeon: DAMIAN MAURICIO Estimated blood loss: none Pathology: none Condition: stable Disposition: floor
[2017-04-30] MEDS: ANCEF/NS 1 GM/50 ML 1 GM/50 ML BAG IV SCH (12:41)
--- NOTE | 2017-04-30 13:43 | Progress Note ---
Subjective Patient Reports: Positive: feels better, tolerating a regular diet, flatus, bowel movement Narrative: doing fine , no need for surgical intervention ,abd soft talked toDaughter , will see PRN . Objective Vital Signs - 12hr 04/30/17 04/30/17 04/30/17 02:00 03:00 03:20 Temperature Pulse Rate 89 88 82 Pulse Rate [ From Monitor] Respiratory 16 16 Rate Blood Pressure 123/62 99/71 O2 Sat by Pulse 100 100 Oximetry 04/30/17 04/30/17 04/30/17 04:00 05:00 06:00 Temperature 98.8 F Pulse Rate 92 H 93 H 83 Pulse Rate [ From Monitor] Respiratory 16 20 14 Rate Blood Pressure 99/71 99/71 109/73 O2 Sat by Pulse 100 98 100 Oximetry 04/30/17 04/30/17 04/30/17 07:00 08:00 09:00 Temperature 97.5 F L Pulse Rate 90 88 96 H Pulse Rate [ 88 From Monitor] Respiratory 13 13 12 Rate Blood Pressure 109/73 122/56 120/60 O2 Sat by Pulse 100 100 100 Oximetry 04/30/17 04/30/17 04/30/17 09:10 10:00 10:48 Temperature 97.5 F L 98.3 F Pulse Rate 110 H 110 H 87 Pulse Rate [ 110 H From Monitor] Respiratory 20 20 16 Rate Blood Pressure 120/60 120/60 99/40 O2 Sat by Pulse 100 100 98 Oximetry 04/30/17 04/30/17 04/30/17 10:54 11:00 11:09 Temperature Pulse Rate 94 H 91 H 96 H Pulse Rate [ From Monitor] Respiratory 18 13 18 Rate Blood Pressure 102/52 111/50 109/50 O2 Sat by Pulse 98 100 100 Oximetry 04/30/17 04/30/17 11:24 12:00 Temperature 97.4 F L Pulse Rate 90 80 Pulse Rate [ 80 From Monitor] Respiratory 18 11 L Rate Blood Pressure 122/60 125/54 O2 Sat by Pulse 100 100 Oximetry - Labs 04/30/17 04:04 04/29/17 03:27 Calcium panel 04/30/17 Range/Units 04:04 Phosphorus 4.10 (2.5-4.5) mg/dL
[2017-04-30] MEDS ORDERED: NACL 0.9% 100 ML IV PRN (17:03)
--- NOTE | 2017-04-30 17:03 | Progress Note ---
Assessment and Plan - Patient Problems (1) Lower GI bleed Current Visit: Yes Status: Acute Plan to address problem: GI on board, s/p colonoscopy which showed multiple medium/large sigmoid diverticulosis, mild ascending diverticulosis and mild internal hemorrhoids S/p transfusion of unit of PRBCs No surgical intervention needed at this time (2) ESRD (end stage renal disease) on dialysis Current Visit: No Status: Chronic Plan to address problem: BMP pending today Hemodialysis today for clearance only via Perm Catheter Left arteriovenous shunt with positive thrill and bruit noted- patient states her AVF was unable to be used on 04/28/17 so her Perm catheter was used instead Spoke with daughter who mentioned patient is supposed to have her Perm Catheter removed this upcoming Tuesday by [facility], however will follow up with our dialysis center to see if her AVF is working properly Assess need for HD on daily basis Epogen dosing during HD for anemia management Renally dose medications Obtain daily weight Strict intake and output Renal plan discussed with Dr Dumont Continue supportive therapy (3) Anemia in chronic renal disease Current Visit: Yes Status: Acute Qualifiers: Chronic kidney disease stage: C Plan to address problem: Hgb level 10.1 today Epogen dosing during HD for anemia management S/p transfusion of 1 unit of PRBCs (4) Hypotension Current Visit: Yes Status: Acute Qualifiers: Hypotension type: H Trimester: T Plan to address problem: Off Levaphed drip Blood pressure in the 120s systolic Subjective Date of service: 04/30/17 Objective - Vital Signs Vital signs: Vital Signs - 12hr 04/30/17 04/30/17 04/30/17 05:00 06:00 07:00 Temperature Pulse Rate 93 H 83 90 Pulse Rate [ From Monitor] Respiratory 20 14 13 Rate Blood Pressure 99/71 109/73 109/73 O2 Sat by Pulse 98 100 100 Oximetry 04/30/17 04/30/17 04/30/17 08:00 09:00 09:10 Temperature 97.5 F L 97.5 F L Pulse Rate 88 96 H 110 H Pulse Rate [ 88 From Monitor] Respiratory 13 12 20 Rate Blood Pressure 122/56 120/60 120/60 O2 Sat by Pulse 100 100 100 Oximetry 04/30/17 04/30/17 04/30/17 10:00 10:48 10:54 Temperature 98.3 F Pulse Rate 110 H 87 94 H Pulse Rate [ 110 H From Monitor] Respiratory 20 16 18 Rate Blood Pressure 120/60 99/40 102/52 O2 Sat by Pulse 100 98 98 Oximetry 04/30/17 04/30/17 04/30/17 11:00 11:09 11:24 Temperature Pulse Rate 91 H 96 H 90 Pulse Rate [ From Monitor] Respiratory 13 18 18 Rate Blood Pressure 111/50 109/50 122/60 O2 Sat by Pulse 100 100 100 Oximetry 04/30/17 04/30/17 04/30/17 12:00 13:00 14:00 Temperature 97.4 F L Pulse Rate 80 86 103 H Pulse Rate [ 80 From Monitor] Respiratory 11 L 12 12 Rate Blood Pressure 125/54 112/65 114/59 O2 Sat by Pulse 100 100 100 Oximetry 04/30/17 15:00 Temperature Pulse Rate 87 Pulse Rate [ From Monitor] Respiratory 12 Rate Blood Pressure 106/53 O2 Sat by Pulse 100 Oximetry - General Appearance General appearance: frail (no acute distress) EENT: ATNC Neck: no JVD Respiratory: Present: Other (Lung sounds decreased bilaterally, unlabored) Cardiology: regular, S1S2, other (ACCESS: Right Perm Catheter intact; Left Arteriovenous shunt with positive thrill and bruit noted) Gastrointestinal: normoactive bowel sounds, no tenderness Integumentary: warm and dry Neurologic: other (awake, oriented to person, place, but not time) Musculoskeletal: other Psychiatric: cooperative - Lab 04/30/17 04:04 04/29/17 03:27 Most recent lab results Calcium 8.2 mg/dL (8.4-10.2) L 04/29/17 03:27 Phosphorus 4.10 mg/dL (2.5-4.5) 04/30/17 04:04
[2017-04-30] MEDS ORDERED: PROCRIT SUB-Q PRN (17:27)
[2017-04-30 18:38] LABS: Calcium 8.4 mg/dL (8.4-10.2); Chloride 95.8 mmol/L (98-107); Potassium 3.9 mmol/L (3.6-5.0)
--- NOTE | 2017-04-30 19:18 | Post Anesthesia Evaluation ---
- Post Anesthesia Evaluation Patient Participated: Yes Airway Patent: Yes Stable Respiratory Function: Yes Temp > 96.8F: Yes Pain Manageable: Yes Adequeate Hydration: Yes Anesthesia Complications: No Block Receding Appropriately: Not Applicable
[2017-04-30] MEDS: NOVOLOG SUB-Q SCH ×2 (19:40→22:00)
[2017-04-30] MEDS ORDERED: HEPARIN IV PRN (20:17)
[2017-04-30] MEDS ORDERED: HEPARIN 10,000 UNITS/10 ML IV PRN (20:17)
[2017-04-30] MEDS ORDERED: NACL 0.9% 1000 ML 2,000 ML ONE (21:01)
[2017-04-30] MEDS ORDERED: MORPHINE IV PRN (23:15)
[2017-05-01 06:08] LABS: Basophils % (Auto) 0.2 % (0.0-1.8); Eosinophils % (Auto) 1.2 % (0.0-4.3); Hematocrit 30.1 % (30.3-42.9); Hemoglobin 10.1 gm/dl (10.1-14.3); Mean Corpuscular HGB Conc 33 % (30-34); Mean Corpuscular Hemoglobin 30 pg (28-32); Mean Corpuscular Volume 91 fl (79-97); Platelet Count 128 K/mm3 (140-440); Red Blood Count 3.31 M/mm3 (3.65-5.03); Red Cell Distribution Width 16.9 % (13.2-15.2); White Blood Count 8.4 K/mm3 (4.5-11.0)
[2017-05-01 06:50] LABS: BUN/Creatinine Ratio 8.18; Calcium 8.4 mg/dL (8.4-10.2); Chloride 96.5 mmol/L (98-107); Potassium 3.2 mmol/L (3.6-5.0)
[2017-05-01] MEDS: NOVOLOG SUB-Q SCH ×4 (08:19→22:45)
[2017-05-01] MEDS ORDERED: K-DUR PO ONE ×2 (08:46)
--- NOTE | 2017-05-01 08:52 | Progress Note ---
Assessment and Plan - Patient Problems (1) Lower GI bleed Current Visit: Yes Status: Acute Plan to address problem: GI on board, s/p colonoscopy on 04/30/17 which showed multiple medium/large sigmoid diverticulosis, mild ascending diverticulosis and mild internal hemorrhoids S/p transfusion of unit of PRBCs No surgical intervention needed at this time (2) ESRD (end stage renal disease) on dialysis Current Visit: No Status: Chronic Plan to address problem: Status post Hemodialysis yesterday for clearance only via Perm Catheter No heparin given during HD. After completion of HD treatment, heparin added to each perm catheter port to dwell only No acute indication for HD today Assess need for HD on daily basis Epogen dosing during HD for anemia management Renally dose medications GI on board, started on soft diet last night Ordered potassium chloride 10 mEq orally x 1 dose Obtain daily weight Strict intake and output Renal plan discussed with Dr Dumont Continue supportive therapy (3) Anemia in chronic renal disease Current Visit: Yes Status: Acute Qualifiers: Chronic kidney disease stage: C Plan to address problem: Hgb level 10.1 today Epogen dosing during HD for anemia management S/p transfusion of 1 unit of PRBCs (4) Hypotension Current Visit: Yes Status: Acute Qualifiers: Hypotension type: H Trimester: T Plan to address problem: Off Levaphed drip Blood pressure stable in the 120s systolic Subjective Date of service: 05/01/17 Interval history: Patient reports having a headache last night, but feels ok today, no complaints voiced today except for being a little tired this morning. Patient denies nausea or vomiting, states she tolerated her meal last night. Daughter Jenna at bedside, updated on renal plan. Objective - Vital Signs Vital signs: Vital Signs - 12hr 04/30/17 04/30/17 04/30/17 21:00 21:15 21:30 Temperature Pulse Rate 94 H 98 H 94 H Pulse Rate [ From Monitor] Respiratory 13 Rate Respiratory Rate [headache] Blood Pressure 122/71 133/59 127/70 O2 Sat by Pulse 100 Oximetry O2 Sat by Pulse Oximetry [ Anterior Bilateral] 04/30/17 04/30/17 04/30/17 21:45 22:00 22:10 Temperature 98.0 F Pulse Rate 94 H 99 H 94 H Pulse Rate [ 101 H From Monitor] Respiratory 15 15 Rate Respiratory Rate [headache] Blood Pressure 135/53 127/75 122/62 O2 Sat by Pulse 100 Oximetry O2 Sat by Pulse 100 Oximetry [ Anterior Bilateral] 04/30/17 04/30/17 04/30/17 23:00 23:04 23:50 Temperature Pulse Rate 107 H 106 H Pulse Rate [ From Monitor] Respiratory 13 16 12 Rate Respiratory 12 Rate [headache] Blood Pressure 121/55 O2 Sat by Pulse Oximetry O2 Sat by Pulse Oximetry [ Anterior Bilateral] 05/01/17 05/01/17 05/01/17 00:00 00:20 01:00 Temperature 98.9 F Pulse Rate 99 H 96 H Pulse Rate [ From Monitor] Respiratory 11 L 12 11 L Rate Respiratory Rate [headache] Blood Pressure 128/44 91/38 O2 Sat by Pulse 98 100 Oximetry O2 Sat by Pulse Oximetry [ Anterior Bilateral] 05/01/17 05/01/17 05/01/17 01:29 02:00 03:00 Temperature Pulse Rate 105 H 96 H 86 Pulse Rate [ 96 H From Monitor] Respiratory 11 L 11 L Rate Respiratory Rate [headache] Blood Pressure 102/61 102/50 O2 Sat by Pulse 98 100 Oximetry O2 Sat by Pulse Oximetry [ Anterior Bilateral] 05/01/17 05/01/17 05/01/17 03:55 04:00 05:00 Temperature 97.8 F Pulse Rate 90 88 Pulse Rate [ From Monitor] Respiratory 16 10 L Rate Respiratory Rate [headache] Blood Pressure 112/49 111/45 O2 Sat by Pulse 100 100 Oximetry O2 Sat by Pulse Oximetry [ Anterior Bilateral] 05/01/17 05/01/17 06:00 07:26 Temperature Pulse Rate 97 H Pulse Rate [ 97 H From Monitor] Respiratory 10 L Rate Respiratory Rate [headache] Blood Pressure 121/54 O2 Sat by Pulse 100 100 Oximetry O2 Sat by Pulse Oximetry [ Anterior Bilateral] - General Appearance General appearance: frail (no acute distress) EENT: ATNC Neck: no JVD Respiratory: Present: Clear to Ascultation. Absent: Rales Cardiology: irregular, S1S2, other (ACCESS: Right Perm Catheter intact; Left AVF with positive thrill and bruit noted) Gastrointestinal: normoactive bowel sounds, no tenderness Integumentary: warm and dry (right great toe with area of purple discoloration; left great toe with area of skin sore; bilateral lower extremities with skin lesions/rash noted) Neurologic: other (awake, oriented to person, place, but not time, follows simple commands, moves all 4 extremities) Musculoskeletal: other (no edema to both lower extremities) Psychiatric: mood/affect appropriate - Lab 05/01/17 05:27 05/01/17 06:00 Most recent lab results Calcium 8.4 mg/dL (8.4-10.2) 05/01/17 06:00 Phosphorus 4.10 mg/dL (2.5-4.5) 04/30/17 04:04
[2017-05-01] MEDS ORDERED: POTASSIUM CHLORIDE FEEDTUBE ONE (10:00)
--- NOTE | 2017-05-01 10:33 | Gastroenterology Progress Note ---
Assessment and Plan GI: no signs bleeding overnight - probable diverticular bleed - advance deit - ok to transfer to floor - if h/h stable in am ok to d/c - bleeding scan if signs active bleeding - will follow Subjective Date of service: 05/01/17 Interval history: - pt w/o further signs bleeding overnight Objective - Constitutional Vitals: Temp Pulse Resp BP Pulse Ox 98 F 97 H 12 115/55 100 05/01/17 08:00 05/01/17 10:00 05/01/17 10:00 05/01/17 09:00 05/01/17 09:00 General appearance: no acute distress - Respiratory Respiratory: bilateral: CTA - Cardiovascular Rhythm: regular Heart Sounds: Present: S1 & S2 - Gastrointestinal General gastrointestinal: Present: soft, non-tender - Labs CBC & Chem 7: 05/01/17 05:27 05/01/17 06:00 Labs: Laboratory Results - last 24 hr 04/30/17 04/30/17 04/30/17 11:34 15:45 17:19 WBC RBC Hgb Hct MCV MCH MCHC RDW Plt Count Lymph % (Auto) [place] % (Auto) Eos % (Auto) Baso % (Auto) Lymph # [place] # Eos # Baso # Seg Neutrophils % Seg Neutrophils # Sodium 140 Potassium 3.9 Chloride 95.8 L Carbon Dioxide 28 Anion Gap 20 BUN 33 H Creatinine 3.3 H Estimated GFR 16 BUN/Creatinine Ratio 10.00 Glucose 162 H POC Glucose 190 H 207 H Calcium 8.4 04/30/17 05/01/17 05/01/17 21:52 05:27 06:00 WBC 8.4 RBC 3.31 L Hgb 10.1 Hct 30.1 L MCV 91 MCH 30 MCHC 33 RDW 16.9 H Plt Count 128 L Lymph % (Auto) 16.3 [place] % (Auto) 8.1 H Eos % (Auto) 1.2 Baso % (Auto) 0.2 Lymph # 1.4 [place] # 0.7 Eos # 0.1 Baso # 0.0 Seg Neutrophils % 74.2 H Seg Neutrophils # 6.2 Sodium 138 Potassium 3.2 L Chloride 96.5 L Carbon Dioxide 29 Anion Gap 16 BUN 18 H Creatinine 2.2 H Estimated GFR 26 BUN/Creatinine Ratio 8.18 Glucose 148 H POC Glucose 149 H Calcium 8.4
--- NOTE | 2017-05-01 11:42 | Progress Note ---
Assessment and Plan Assessment and plan: Patient is a 76-year-old woman from [facility] with a history of end- stage renal disease on hemodialysis, diabetes mellitus type 2, heart failure who presents with GI bleed. It appears she had blood clots in her diaper, she was hypotensive so started on Levophed drip and admitted to ICU. Daughter Jenna , the stated power of floor worker transfer bay, at bedside says that her mother has some form of cognitive impairment but no official diagnosis of dementia but her memory does waxes and wanes at baseline. Patient was admitted to [facility] November 2016 for odyphagia and was started on daily PPI per GI. PCP is Dr. Nael Garcia. Hemoglobin was 8.4 and she received 2 units of blood. -Hypovolemic shock: resolved -Acute metabolic encephalopathy: Treat the anemia -Acute on chronic GI blood loss anemia status post 2 units: Repeat CBC in a.m. -End Stage renal disease on hemodialysis: Consult nephrology -DVT prophylaxis: SCDs only due to blood loss anemia -Type 2 diabetes mellitus: As sliding-scale, Accu-Cheks, diabetic diet once cleared by consultants Full code, did discuss advanced directives with maged West at bedside due to GI blood loss anemia 04/30/17: Gi scope by Dr. Wallace Mohamud, weaning levaphed off. keep in icu "Pre-op diagnosis: gi bleed Post-op diagnosis: same Findings: Colonoscopy: multiple medium/large sigmoid diverticulosis, mild ascending diverticulosis - mild internal hemorrhoids - negative other Procedure: colonoscopy Anesthesia: MAC Surgeon: DAMIAN MOHAMUD Estimated blood loss: none Pathology: none Condition: stable Disposition: floor" 05/01/17: Levophed weaned off yesterday, no signs of gib, will transfer to monitor bed/out of the icu. if h/h stable tomorrow, possibly discharge soon History Interval history: Patient seen and examined. Follow up on current diagnosis GI bleed. Overnight uneventful. No cp, sob, n/v or severe headaches. Imaging, old records, testing, labs, nursing notes reviewed. Maged West not at bedside Hospitalist Physical - Physical exam Narrative exam: GEN: Thin and frail NAD, AWAKE, ALERT, ORIENTATED x 1 HEENT: NCAT, PERRL, EOMI, OP CLEAR, conjunctiva is not inflammed NECK: SUPPLE, NO THYROMEGALY, NO JVD, NO LAD CVS: RRR, NORMAL S1S2 LUNGS/CHEST: CTA B, NORMAL CHEST EXPANSION B, GOOD AIR ENTRY B ABD: SOFT, NTND, GBS, NO REBOUND OR GUARDING EXT/SKIN: NO SIGNIFICANT EDEMA OR RASH MSK: FROM X 4 EXTREMITIES NEURO: CN 2-12 GROSSLY INTACT, NO new FOCAL DEFICITS PSY: CALM - Constitutional Vitals: Temp Pulse Resp BP Pulse Ox 98 F 97 H 12 115/55 100 05/01/17 08:00 05/01/17 10:00 05/01/17 10:00 05/01/17 09:00 05/01/17 09:00 General appearance: Present: no acute distress Results - Labs CBC & Chem 7: 05/01/17 05:27 05/01/17 06:00 Labs: Laboratory Last Values WBC 8.4 K/mm3 (4.5-11.0) 05/01/17 05:27 RBC 3.31 M/mm3 (3.65-5.03) L 05/01/17 05:27 Hgb 10.1 gm/dl (10.1-14.3) 05/01/17 05:27 Hct 30.1 % (30.3-42.9) L 05/01/17 05:27 MCV 91 fl (79-97) 05/01/17 05:27 MCH 30 pg (28-32) 05/01/17 05:27 MCHC 33 % (30-34) 05/01/17 05:27 RDW 16.9 % (13.2-15.2) H 05/01/17 05:27 Plt Count 128 K/mm3 (140-440) L 05/01/17 05:27 Lymph % (Auto) 16.3 % (13.4-35.0) 05/01/17 05:27 [place] % (Auto) 8.1 % (0.0-7.3) H 05/01/17 05:27 Eos % (Auto) 1.2 % (0.0-4.3) 05/01/17 05:27 Baso % (Auto) 0.2 % (0.0-1.8) 05/01/17 05:27 Lymph # 1.4 K/mm3 (1.2-5.4) 05/01/17 05:27 [place] # 0.7 K/mm3 (0.0-0.8) 05/01/17 05:27 Eos # 0.1 K/mm3 (0.0-0.4) 05/01/17 05:27 Baso # 0.0 K/mm3 (0.0-0.1) 05/01/17 05:27 Add Manual Diff Complete 04/29/17 03:27 Total Counted 100 04/29/17 03:27 Seg Neutrophils % 74.2 % (40.0-70.0) H 05/01/17 05:27 Seg Neuts % (Manual) 99.0 % (40.0-70.0) H 04/29/17 03:27 Band Neutrophils % 0 % 04/29/17 03:27 Lymphocytes % (Manual) 0 % (13.4-35.0) L 04/29/17 03:27 Reactive Lymphs % (Man) 0 % 04/29/17 03:27 Monocytes % (Manual) 1.0 % (0.0-7.3) 04/29/17 03:27 Eosinophils % (Manual) 0 % (0.0-4.3) 04/29/17 03:27 Basophils % (Manual) 0 % (0.0-1.8) 04/29/17 03:27 Metamyelocytes % 0 % 04/29/17 03:27 Myelocytes % 0 % 04/29/17 03:27 Promyelocytes % 0 % 04/29/17 03:27 Blast Cells % 0 % 04/29/17 03:27 Nucleated RBC % Not Reportable 04/29/17 03:27 Seg Neutrophils # 6.2 K/mm3 (1.8-7.7) 05/01/17 05:27 Seg Neutrophils # Man 14.2 K/mm3 (1.8-7.7) H 04/29/17 03:27 Band Neutrophils # 0.0 K/mm3 04/29/17 03:27 Lymphocytes # (Manual) 0.0 K/mm3 (1.2-5.4) L 04/29/17 03:27 Abs React Lymphs (Man) 0.0 K/mm3 04/29/17 03:27 Monocytes # (Manual) 0.1 K/mm3 (0.0-0.8) 04/29/17 03:27 Eosinophils # (Manual) 0.0 K/mm3 (0.0-0.4) 04/29/17 03:27 Basophils # (Manual) 0.0 K/mm3 (0.0-0.1) 04/29/17 03:27 Metamyelocytes # 0.0 K/mm3 04/29/17 03:27 Myelocytes # 0.0 K/mm3 04/29/17 03:27 Promyelocytes # 0.0 K/mm3 04/29/17 03:27 Blast Cells # 0.0 K/mm3 04/29/17 03:27 WBC Morphology Not Reportable 04/29/17 03:27 Hypersegmented Neuts Not Reportable 04/29/17 03:27 Hyposegmented Neuts Not Reportable 04/29/17 03:27 Hypogranular Neuts Not Reportable 04/29/17 03:27 Smudge Cells Not Reportable 04/29/17 03:27 Toxic Granulation Not Reportable 04/29/17 03:27 Toxic Vacuolation Not Reportable 04/29/17 03:27 Dohle Bodies Not Reportable 04/29/17 03:27 Pelger-Huet Anomaly Not Reportable 04/29/17 03:27 [place] Rods Not Reportable 04/29/17 03:27 Platelet Estimate Appears normal 04/29/17 03:27 Clumped Platelets Not Reportable 04/29/17 03:27 Plt Clumps, EDTA Not Reportable 04/29/17 03:27 Large Platelets Not Reportable 04/29/17 03:27 Giant Platelets Not Reportable 04/29/17 03:27 Platelet Satelliting Not Reportable 04/29/17 03:27 Plt Morphology Comment Not Reportable 04/29/17 03:27 RBC Morphology Not Reportable 04/29/17 03:27 Dimorphic RBCs Not Reportable 04/29/17 03:27 Polychromasia Not Reportable 04/29/17 03:27 Hypochromasia Not Reportable 04/29/17 03:27 Poikilocytosis Not Reportable 04/29/17 03:27 Anisocytosis 1+ 04/29/17 03:27 Microcytosis Not Reportable 04/29/17 03:27 Macrocytosis Not Reportable 04/29/17 03:27 Spherocytes Not Reportable 04/29/17 03:27 Pappenheimer Bodies Not Reportable 04/29/17 03:27 Sickle Cells Not Reportable 04/29/17 03:27 Target Cells Not Reportable 04/29/17 03:27 Tear Drop Cells Not Reportable 04/29/17 03:27 Ovalocytes Not Reportable 04/29/17 03:27 Helmet Cells Not Reportable 04/29/17 03:27 [place] Bodies Not Reportable 04/29/17 03:27 [place] Rings Not Reportable 04/29/17 03:27 Ruddy Cells Not Reportable 04/29/17 03:27 Bite Cells Not Reportable 04/29/17 03:27 Crenated Cell Not Reportable 04/29/17 03:27 Elliptocytes Not Reportable 04/29/17 03:27 Acanthocytes (Spur) Not Reportable 04/29/17 03:27 Rouleaux Not Reportable 04/29/17 03:27 Hemoglobin C Crystals Not Reportable 04/29/17 03:27 Schistocytes Not Reportable 04/29/17 03:27 Malaria parasites Not Reportable 04/29/17 03:27 Jerry Bodies Not Reportable 04/29/17 03:27 Hem Pathologist Commnt No 04/29/17 03:27 PT 17.0 Sec. (12.2-14.9) H 04/28/17 18:20 INR 1.31 (0.87-1.13) H 04/28/17 18:20 APTT 36.5 Sec. (24.2-36.6) 04/28/17 18:20 Sodium 138 mmol/L (137-145) 05/01/17 06:00 Potassium 3.2 mmol/L (3.6-5.0) L 05/01/17 06:00 Chloride 96.5 mmol/L (98-107) L 05/01/17 06:00 Carbon Dioxide 29 mmol/L (22-30) 05/01/17 06:00 Anion Gap 16 mmol/L 05/01/17 06:00 BUN 18 mg/dL (7-17) H 05/01/17 06:00 Creatinine 2.2 mg/dL (0.7-1.2) H 05/01/17 06:00 Estimated GFR 26 ml/min 05/01/17 06:00 BUN/Creatinine Ratio 8.18 % 05/01/17 06:00 Glucose 148 mg/dL (65-100) H 05/01/17 06:00 POC Glucose 149 (70-105) H 04/30/17 21:52 Lactic Acid 4.00 mmol/L (0.7-2.0) H* 04/28/17 20:12 Calcium 8.4 mg/dL (8.4-10.2) 05/01/17 06:00 Phosphorus 4.10 mg/dL (2.5-4.5) 04/30/17 04:04 Total Bilirubin 0.90 mg/dL (0.1-1.2) 04/28/17 18:20 AST 19 units/L (5-40) 04/28/17 18:20 ALT 11 units/L (7-56) 04/28/17 18:20 Alkaline Phosphatase 77 units/L (35-129) 04/28/17 18:20 Total Protein 5.2 g/dL (6.3-8.2) L 04/28/17 18:20 Albumin 2.3 g/dL (3.9-5) L 04/28/17 18:20 Albumin/Globulin Ratio 0.8 % 04/28/17 18:20 Blood Type B NEGATIVE 04/28/17 18:20 Antibody Screen TNR 04/28/17 18:20 JOSÉ LUIS Antibody Screen Positive 04/28/17 18:20 Antibody Identification Anti-D (Actively Aquired) 04/28/17 18:20 Crossmatch See Detail 04/28/17 18:20
[2017-05-01] MEDS: ANCEF/NS 1 GM/50 ML 1 GM/50 ML BAG IV SCH (12:14)
--- NOTE | 2017-05-01 14:03 | Progress Note ---
Assessment and Plan 76 y/o female with hypotension and GI bleed and chronic renal failure on HD 1. Stable, agree with transfer. has no pulm issues. Will sign off. Subjective Date of service: 05/01/17 Interval history: No further evidence of bleeding. per IMS transferring to floor. H/H stable Objective - Constitutional Vitals: Vital Signs - 12hr 05/01/17 05/01/17 05/01/17 02:00 03:00 03:55 Temperature 97.8 F Pulse Rate 96 H 86 Pulse Rate [ 96 H From Monitor] Respiratory 11 L 11 L Rate Respiratory Rate [headache] Blood Pressure 102/61 102/50 O2 Sat by Pulse 98 100 Oximetry 05/01/17 05/01/17 05/01/17 04:00 05:00 06:00 Temperature Pulse Rate 90 88 97 H Pulse Rate [ 97 H From Monitor] Respiratory 16 10 L 10 L Rate Respiratory Rate [headache] Blood Pressure 112/49 111/45 121/54 O2 Sat by Pulse 100 100 100 Oximetry 05/01/17 05/01/17 05/01/17 07:00 07:26 08:00 Temperature 98 F Pulse Rate 86 87 Pulse Rate [ 87 From Monitor] Respiratory 10 L 15 Rate Respiratory Rate [headache] Blood Pressure 140/41 125/58 O2 Sat by Pulse 100 100 Oximetry 05/01/17 05/01/17 05/01/17 09:00 10:00 11:00 Temperature Pulse Rate 91 H 88 80 Pulse Rate [ From Monitor] Respiratory 13 9 L 10 L Rate Respiratory 12 Rate [headache] Blood Pressure 115/55 118/61 107/63 O2 Sat by Pulse 100 99 100 Oximetry 05/01/17 12:00 Temperature 98.5 F Pulse Rate 87 Pulse Rate [ From Monitor] Respiratory 11 L Rate Respiratory Rate [headache] Blood Pressure 116/54 O2 Sat by Pulse 100 Oximetry General appearance: Present: no acute distress - Labs CBC & Chem 7: 05/01/17 05:27 05/01/17 06:00 Labs: Abnormal lab results 04/30/17 04/30/17 04/30/17 Range/Units 15:45 17:19 21:52 RBC (3.65-5.03) M/mm3 Hct (30.3-42.9) % RDW (13.2-15.2) % Plt Count (140-440) K/mm3 [place] % (Auto) (0.0-7.3) % Seg Neutrophils % (40.0-70.0) % Potassium (3.6-5.0) mmol/L Chloride 95.8 L (98-107) mmol/L BUN 33 H (7-17) mg/dL Creatinine 3.3 H (0.7-1.2) mg/dL Glucose 162 H (65-100) mg/dL POC Glucose 207 H 149 H (70-105) 05/01/17 05/01/17 Range/Units 05:27 06:00 RBC 3.31 L (3.65-5.03) M/mm3 Hct 30.1 L (30.3-42.9) % RDW 16.9 H (13.2-15.2) % Plt Count 128 L (140-440) K/mm3 [place] % (Auto) 8.1 H (0.0-7.3) % Seg Neutrophils % 74.2 H (40.0-70.0) % Potassium 3.2 L (3.6-5.0) mmol/L Chloride 96.5 L (98-107) mmol/L BUN 18 H (7-17) mg/dL Creatinine 2.2 H (0.7-1.2) mg/dL Glucose 148 H (65-100) mg/dL POC Glucose (70-105)
[2017-05-02 06:48] LABS: Basophils % (Auto) 0.4 % (0.0-1.8); Eosinophils % (Auto) 4.1 % (0.0-4.3); Hematocrit 32.7 % (30.3-42.9); Hemoglobin 10.9 gm/dl (10.1-14.3); Mean Corpuscular HGB Conc 33 % (30-34); Mean Corpuscular Hemoglobin 30 pg (28-32); Mean Corpuscular Volume 91 fl (79-97); Platelet Count 134 K/mm3 (140-440); Red Blood Count 3.59 M/mm3 (3.65-5.03); Red Cell Distribution Width 17.1 % (13.2-15.2); White Blood Count 7.3 K/mm3 (4.5-11.0)
[2017-05-02 06:51] LABS: BUN/Creatinine Ratio 7.4; Calcium 8.6 mg/dL (8.4-10.2); Chloride 98.6 mmol/L (98-107); Potassium 3.8 mmol/L (3.6-5.0)
--- NOTE | 2017-05-02 06:55 | Operative Report ---
PROCEDURE: Colonoscopy. INDICATIONS: 1. Anemia. 2. GI bleed. MEDICATIONS: Propofol per CHIEF PROCUREMENT OFFICER. COMPLICATIONS: None. DESCRIPTION OF PROCEDURE: The patient was brought to procedure suite. The patient had the procedure discussed with her at length. All risks, complications and benefits were discussed after which the patient signed for the procedure to be performed. The patient was placed in left lateral decubitus position. Rectal exam was performed prior to insertion of the scope. After adequate sedation medication as above, the scope was inserted in the rectum and brought to the level of the cecum. Ileocecal valve and appendiceal orifice, cecal strap were visualized. Colonoscope was then removed and mucosa visualized. Prep quality was fair to poor. The procedure was completed. FINDINGS: There were no mass lesions or polyps noted during this procedure. There were no signs of active bleeding noted during this procedure. There were multiple medium to large sigmoid diverticula noted. There were few very small sigmoid diverticula noted. Retroflexion showed small internal hemorrhoids. The patient tolerated the procedure well. No complications during the procedure. IMPRESSION: 1. Diverticulosis, particularly the sigmoid area. Possible diverticular bleeding in that area. 2. Mild right-sided diverticula. 3. Internal hemorrhoids. RECOMMENDATIONS: 1. Follow labs. 2. Advance diet. 3. If signs of further bleeding, consider bleeding scan and surgical consultation. 4. If H and H stable in a.m., okay to discharge from GI standpoint. JOB# [id number] [facility]/NTS
[2017-05-02] MEDS: NOVOLOG SUB-Q SCH ×2 (08:08→13:13)
--- NOTE | 2017-05-02 09:17 | Progress Note ---
Assessment and Plan - Patient Problems (1) Lower GI bleed Current Visit: Yes Status: Acute Plan to address problem: GI on board, s/p colonoscopy on 04/30/17 which showed multiple medium/large sigmoid diverticulosis, mild ascending diverticulosis and mild internal hemorrhoids S/p transfusion of unit of PRBCs No surgical intervention needed at this time (2) ESRD (end stage renal disease) on dialysis Current Visit: No Status: Chronic Plan to address problem: Hemodialysis tomorrow for UF and clearance No acute indication for HD today Epogen dosing during HD for anemia management Renally dose medications Obtain daily weight Strict intake and output (3) Anemia in chronic renal disease Current Visit: Yes Status: Acute Qualifiers: Chronic kidney disease stage: C Plan to address problem: Hgb level 10.9 today Epogen dosing during HD for anemia management S/p transfusion of 1 unit of PRBCs Subjective Date of service: 05/02/17 Principal diagnosis: ESRD Interval history: Patient states she is feeling better. Daughter at bedside. Objective - Vital Signs Vital signs: Vital Signs - 12hr 05/01/17 05/02/17 05/02/17 21:54 00:00 04:00 Temperature 97.8 F 97.8 F 97.8 F Pulse Rate 91 H Pulse Rate [ 88 89 Right] Respiratory 18 18 18 Rate Blood Pressure 130/57 128/54 132/60 O2 Sat by Pulse 100 100 100 Oximetry 05/02/17 08:56 Temperature Pulse Rate Pulse Rate [ Right] Respiratory Rate Blood Pressure O2 Sat by Pulse 96 Oximetry - General Appearance General appearance: well-developed, appears stated age, fatigue EENT: ATNC, PERRL, hearing intact, vision intact Neck: no JVD, supple Respiratory: Present: Decreased Breath Sounds Cardiology: regular, S1S2 Gastrointestinal: normoactive bowel sounds Integumentary: warm and dry Neurologic: alert and oriented x3 Musculoskeletal: joint swelling, other Psychiatric: cooperative (Left AVF with positive bruit and thrill. Perm- catheter intact.) - Lab 05/02/17 04:00 05/02/17 04:00 Most recent lab results Calcium 8.6 mg/dL (8.4-10.2) 05/02/17 04:00 Phosphorus 2.60 mg/dL (2.5-4.5) 05/02/17 04:00
--- NOTE | 2017-05-02 10:04 | Gastroenterology Progress Note ---
Assessment and Plan 1.GI bleed -HGB 10.9 today- stable -continue to monitor H&H and transfuse as needed -no signs of bleeding overnight or this am -S/P colonoscopy 04/30/17- revealed mild ascending diverticulosis, multiple medium/large sigmoid diverticulosis, and internal hemorrhoids -etiology probably diverticular bleed -bleeding scan if signs of active bleed develops -no further recommendations from GI standpoint, pt okay to be d/c with a f/u appt in 2 weeks -discussed need for f/u appt with pt and family, understanding voiced, office information and card given -will sign off Subjective Date of service: 05/02/17 Principal diagnosis: GI bleed Interval history: Patient resting in bed. No acute distress. Family at bedside. Denies signs of bleeding overnight or this am. Objective - Constitutional Vitals: Temp Pulse Resp BP Pulse Ox 97.8 F 89 18 132/60 96 05/02/17 04:00 05/02/17 04:00 05/02/17 04:00 05/02/17 04:00 05/02/17 08:56 General appearance: no acute distress - EENT Eyes: PERRL, EOM intact ENT: hearing intact - Respiratory Respiratory: bilateral: CTA (anterior) - Cardiovascular Rhythm: regular Heart Sounds: Present: S1 & S2 - Extremities Extremity abnormal: other (Left arm AVF) - Gastrointestinal General gastrointestinal: Present: soft, non-tender, non-distended, normal bowel sounds - Integumentary Integumentary: Present: warm, dry - Neurologic Neurological: alert and oriented x3 - Labs CBC & Chem 7: 05/02/17 04:00 05/02/17 04:00 Labs: Laboratory Results - last 24 hr 05/01/17 05/01/17 05/01/17 08:05 10:58 16:04 WBC RBC Hgb Hct MCV MCH MCHC RDW Plt Count Lymph % (Auto) [place] % (Auto) Eos % (Auto) Baso % (Auto) Lymph # [place] # Eos # Baso # Seg Neutrophils % Seg Neutrophils # Sodium Potassium Chloride Carbon Dioxide Anion Gap BUN Creatinine Estimated GFR BUN/Creatinine Ratio Glucose POC Glucose 140 H 179 H 173 H Calcium Phosphorus 05/01/17 05/02/17 05/02/17 21:27 04:00 04:00 WBC 7.3 RBC 3.59 L Hgb 10.9 Hct 32.7 MCV 91 MCH 30 MCHC 33 RDW 17.1 H Plt Count 134 L Lymph % (Auto) 24.3 [place] % (Auto) 8.0 H Eos % (Auto) 4.1 Baso % (Auto) 0.4 Lymph # 1.8 [place] # 0.6 Eos # 0.3 Baso # 0.0 Seg Neutrophils % 63.2 Seg Neutrophils # 4.6 Sodium Potassium Chloride Carbon Dioxide Anion Gap BUN Creatinine Estimated GFR BUN/Creatinine Ratio Glucose POC Glucose 166 H Calcium Phosphorus 2.60 05/02/17 05/02/17 04:00 06:21 WBC RBC Hgb Hct MCV MCH MCHC RDW Plt Count Lymph % (Auto) [place] % (Auto) Eos % (Auto) Baso % (Auto) Lymph # [place] # Eos # Baso # Seg Neutrophils % Seg Neutrophils # Sodium 138 Potassium 3.8 Chloride 98.6 Carbon Dioxide 26 Anion Gap 17 BUN 20 H Creatinine 2.7 H Estimated GFR 21 BUN/Creatinine Ratio 7.40 Glucose 106 H POC Glucose 130 H Calcium 8.6 Phosphorus
--- NOTE | 2017-05-02 11:55 | Discharge Summary ---
Providers - Providers Date of Admission: 04/28/17 22:07 Date of discharge: 05/02/17 Attending physician: MAY TYSON 04/29/17 08:00 Consult to Wound/ET Nurse [CONS] Urgent Reason For Exam: wound eval, great toes purple 04/29/17 12:57 Consult to Physician [CONS] Urgent Consulting Provider: OZZIE DE JESUS Reason For Exam: Nephrology management Place consult to:: Ozzie De Jesus Notified:: [phone] Was contact made?: Yes If yes, spoke with:: MD Time called:: 09:30 Comment:: notified in person Primary care physician: PERCUSSION INSTRUMENT REPAIRER Hospitalization Condition: Stable Hospital course: Patient is a 76-year-old woman from [facility] with a history of end- stage renal disease on hemodialysis, diabetes mellitus type 2, heart failure who presents with GI bleed. It appears she had blood clots in her diaper, she was hypotensive so started on Levophed drip and admitted to ICU. Daughter Jenna , the stated power of tax associate attorney, at bedside says that her mother has some form of cognitive impairment but no official diagnosis of dementia but her memory does waxes and wanes at baseline. Patient was admitted to [facility] November 2016 for odyphagia and was started on daily PPI per GI. PCP is Dr. Nael Casey. Hemoglobin was 8.4 and she received 2 units of blood. -Hypovolemic shock: resolved -Acute metabolic encephalopathy: Treat the anemia -Acute on chronic GI blood loss anemia status post 2 units due to Diverticulosis -End Stage renal disease on hemodialysis: Consult nephrology -DVT prophylaxis: SCDs only due to blood loss anemia -Type 2 diabetes mellitus: As sliding-scale, Accu-Cheks, diabetic diet once cleared by consultants Full code, did discuss advanced directives with daughter Jenna at bedside due to GI blood loss anemia 04/30/17: Gi scope by Dr. Wallace Mohamud, weaning levaphed off. keep in icu "Pre-op diagnosis: gi bleed Post-op diagnosis: same Findings: Colonoscopy: multiple medium/large sigmoid diverticulosis, mild ascending diverticulosis - mild internal hemorrhoids - negative other Procedure: colonoscopy Anesthesia: MAC Surgeon: DAMIAN MOHAMUD Estimated blood loss: none Pathology: none Condition: stable Disposition: floor" 05/01/17: Levophed weaned off yesterday, no signs of gib, will transfer to monitor bed/out of the icu. if h/h stable tomorrow, possibly discharge soon 05/02/17: stable, can be discharged back to [place], maged West at bedside Disposition: [id number]/[id number] Time spent for discharge: 34 minutes Core Measure Documentation - Palliative Care Palliative Care/ Comfort Measures: Not Applicable - Core Measures Any of the following diagnoses?: none - VTE Discharge Requirements Deep Vein Thrombosis/Pulmonary Embolism Present on Admission: No Has pt received <5 days of overlap therapy or INR<2.0: No Anticoagulant overlap therapy prescribed at discharge: No Contraindication No Overlap Therapy order at DC: Not Indicated Exam - Physical Exam Narrative exam: GEN: Thin and frail NAD, AWAKE, ALERT, ORIENTATED x 1 HEENT: NCAT, PERRL, EOMI, OP CLEAR, conjunctiva is not inflammed NECK: SUPPLE, NO THYROMEGALY, NO JVD, NO LAD CVS: RRR, NORMAL S1S2 LUNGS/CHEST: CTA B, NORMAL CHEST EXPANSION B, GOOD AIR ENTRY B ABD: SOFT, NTND, GBS, NO REBOUND OR GUARDING EXT/SKIN: NO SIGNIFICANT EDEMA OR RASH MSK: FROM X 4 EXTREMITIES NEURO: CN 2-12 GROSSLY INTACT, NO new FOCAL DEFICITS PSY: CALM - Constitutional Vitals: Temp Pulse Resp BP Pulse Ox 97.5 F L 91 H 20 118/57 96 05/02/17 08:00 05/02/17 08:00 05/02/17 08:00 05/02/17 08:00 05/02/17 08:56 Plan Activity: up only with assistance, fall precautions, other (no strenous activites until cleared by PCP. ) Diet: renal Follow up with: PRIMARY MD HILARIO [Primary Care Provider] - 3-5 Days Forms: Accompanied Note
[2017-05-02 13:25] VITALS: BP 115/55
== END 2017-05-02 16:00 | DRG 377 ==
LOC: ED 17:32 → CC1 22:07 → 3A 05-01 14:23
PROVIDERS: ADMIT Internal Medicine; ATTEND Internal Medicine
PROC: 30233N1 Transfusion of Nonautologous Red Blood Cells into Peripheral Vein, Percutaneous Approach (ICD-10-PCS; 2017-04-28)
PROC: 5A1D00Z (ICD-10-PCS; 2017-04-28)
PROC: 0DJD8ZZ Inspection of Lower Intestinal Tract, Via Natural or Artificial Opening Endoscopic (ICD-10-PCS; principal; 2017-04-30)
DX: K57.91 Diverticulosis of intestine, part unspecified, without perforation or abscess with bleeding (principal); N18.6 End stage renal disease; R57.1 Hypovolemic shock; G93.41 Metabolic encephalopathy; D62 Acute posthemorrhagic anemia; I13.2 Hypertensive heart and chronic kidney disease with heart failure and with stage 5 chronic kidney disease, or end stage renal disease; I50.9 Heart failure, unspecified; I95.9 Hypotension, unspecified; E11.22 Type 2 diabetes mellitus with diabetic chronic kidney disease; D63.1 Anemia in chronic kidney disease; K64.8 Other hemorrhoids; Z88.8 Allergy status to other drugs, medicaments and biological substances; Z82.49 Family history of ischemic heart disease and other diseases of the circulatory system; Z90.710 Acquired absence of both cervix and uterus; Z98.891 History of uterine scar from previous surgery; Z83.3 Family history of diabetes mellitus; Z99.2 Dependence on renal dialysis
CPT/HCPCS: 36415; 71010; 74000; 74176; 78278; 80048; 80053; 82140; 82962; 84100; 85007; 85014; 85018; 85025; 85610; 85730; 86850; 86870; 86900; 86901; 86920; 87040; 93005; 93010; 94760; 96361; 96374; 96375; A9560; J0690; J0885; J1200; J1642; J1644; J1815; J2250; J2270; J2405; J2543; J2704; J2930; J7030; J7040; P9016